=== PATIENT | male | born 2000 | race Caucasian/White ===

== ENCOUNTER 2019-03-08 17:44 | Inpatient (IN) ==
[2019-03-08] MEDS ORDERED: SODIUM CHLORIDE 0.9% 1000ML 1,000 ML IV SCH (18:15)
[2019-03-08 18:31] LABS: Basophils # (auto) 0.01 K/uL (0-0.2); Basophils % (auto) 0.1 %; Eosinophils # (auto) 0.01 K/uL (0-0.5); Eosinophils % (auto) 0.1 %; Hematocrit (blood only) 43.8 % (42-52); Immature Granulocytes # (auto) 0.01 K/uL (0.00-0.02); Immature Granulocytes % (auto) 0.1 %; Lymphocytes # (auto) 2.36 K/uL (1.2-3.4); Lymphocytes % (auto) 31.2 %; Mean Corpuscular Hemoglobin 30.9 pg (25-34); Mean Corpuscular Hgb Conc 34.2 g/dL (32-36); Mean Corpuscular Volume 90.1 fL (80-100); Mean Platelet Volume 11.1 fL (7.4-10.4); Monocytes # (auto) 0.68 K/uL (0.11-0.59); Neutrophils # (auto) 4.49 K/uL (1.4-6.5); Neutrophils % (auto) 59.5 %; Platelet Count 173 K/uL (130-400); RDW Coefficient of Variation 13.6 % (11.5-14.5); RDW Standard Deviation 45.1 fL (36.4-46.3); Red Blood Count 4.86 M/uL (4.7-6.1); White Blood Count 7.56 K/uL (4.8-10.8)
[2019-03-08] MEDS ORDERED: TPA for Stroke IV STA (18:32)
--- NOTE | 2019-03-08 18:35 | CT Scan Report ---
CT head/brain wo con CLINICAL HISTORY: 18 years-old Male presenting with Stroke evaluation . TECHNIQUE: Multidetector CT imaging of the head was performed without the use of intravenous contrast . IV contrast: None. One or more dose lowering techniques were used consistent with the principles of ALARA (as low as reasonably achievable), including automatic exposure control, mA or kV adjustment t o individual patient size, and/or use of iterative reconstruction. COMPARISON: None. CT DOSE (mGy.cm): The estimated cumulative dose is 1089.12. FINDINGS: Replenishment Buyer topogram: Unremarkable. Ventricles and sulci normal in size. No hemorrhage. Brain parenchyma normal in appearance with preser leana sprague-white differentiation. No acute territorial infarct. No mass effect or midline shift. No ext ra-axial fluid collection. Paranasal sinuses and mastoid air cells clear. Calvarium intact. IMPRESSION: 1. No acute intracranial abnormality. These findings were discussed with charge nurse by Dr. Hopson on 03/08/2019 6:32 PM. Electronically signed by: Dayo Hopson M.D. 03/08/2019 6:33 PM
[2019-03-08] MEDS ORDERED: OPTIRAY 320 125ml IV PRN (18:37)
--- NOTE | 2019-03-08 18:40 | CT Scan Report ---
CT angio head w con CLINICAL HISTORY: 18 years-old Male presenting with right sided weakness, concern for stroke. TECHNIQUE: Multidetector CT angiography of the head was performed after the administration of intrave nous contrast. 3-D volumetric and/or maximum intensity projection (MIP) images were subsequently wolfgang nstructed for review. IV contrast: Optiray 320. One or more dose lowering techniques were used consis tent with the principles of ALARA (as low as reasonably achievable), including automatic exposure con trol, mA or kV adjustment to individual patient size, and/or use of iterative reconstruction. COMPARISON: None. CT DOSE (mGy.cm): The estimated cumulative dose is 1089.12 mGy.cm. FINDINGS: Selector Packer topogram: Unremarkable. Anterior circulation: Intracranial portions of the internal carotid arteries patent to the level of t he termini. Anterior cerebral arteries patent. Middle cerebral arteries patent. Anterior communicatin g artery patent. Posterior circulation: Codominant vertebral arteries. Intradural portions of the vertebral arteries p atent. Posterior inferior cerebellar arteries patent. Basilar artery patent. Anterior inferior cerebe llar arteries poorly visualized. Superior cerebellar arteries patent. Posterior cerebral arteries pat ent. Posterior communicating arteries patent. Dural venous sinuses: Patent. Other: Allowing for the phase of contrast, brain parenchyma within normal limits. Calvarium intact. IMPRESSION: 1. No evidence of aneurysm, focal vessel occlusion, or significant stenosis of the intracranial yessy joana. Electronically signed by: Dayo Hopson M.D. 03/08/2019 6:39 PM
[2019-03-08] MEDS ORDERED: ALTEPLASE BOLUS IV ONE (18:42)
[2019-03-08 18:43] LABS: INR 1.1 (0.9-1.1); Partial Thromboplastin Time 26.3 Seconds (21.0-31.0)
[2019-03-08] MEDS ORDERED: PRIMARY PLUMSET, PE LINED TUBING, 113 IN, NON-DEHP (2260-0500) IV ONE (18:43)
[2019-03-08] MEDS ORDERED: ALTEPLASE IV ONE (18:43)
[2019-03-08] MEDS ORDERED: RECOMBINANT IV ONE (18:43)
--- NOTE | 2019-03-08 18:43 | CT Scan Report ---
CT angio neck with con CLINICAL HISTORY: 18 years-old Male presenting with right-sided weakness, concern for stroke. TECHNIQUE: Multidetector CT angiography of the neck was performed after the administration of intrave nous contrast. 3-D volumetric and/or maximum intensity projection (MIP) images were subsequently wolfgang nstructed for review. IV contrast: 120 mL of Optiray 320. One or more dose lowering techniques were u sed consistent with the principles of ALARA (as low as reasonably achievable), including automatic ex posure control, mA or kV adjustment to individual patient size, and/or use of iterative reconstructio n. Stenosis measurements were based on NASCET-like criteria (distal lumen diameter as the denominator for stenosis measurement). COMPARISON: None. CT DOSE (mGy.cm): The estimated cumulative dose is 1089.12. FINDINGS: Commercial Insulator topogram: Unremarkable. Aortic arch: Normal three-vessel aortic arch with patent origins of the branch vessels. Innominate artery: Patent. Right subclavian artery: Patent. Right common carotid artery: Patent. Right internal and external carotid arteries: Right carotid bifurcation patent. Right internal and ex ternal carotid arteries widely patent. Left common carotid artery: Patent. Left internal and external carotid arteries: Left carotid bifurcation patent. Left internal and exter nal carotid arteries widely patent. Left subclavian artery: Patent. Vertebral arteries: Codominant vertebral arteries. Origins and courses of the bilateral vertebral art eries patent. Other: Limited intracranial evaluation within normal limits. Soft tissues of the neck normal allowing for the phase of contrast. Normal cervical spine. Lung apices clear. IMPRESSION: 1. No evidence of dissection, focal vessel occlusion, or significant stenosis of the cervical arteri es. Electronically signed by: Dayo Hopson M.D. 03/08/2019 6:41 PM
[2019-03-08 18:49] LABS: Alanine Aminotransferase 23 U/L (12-78); Albumin Level 4.5 gm/dl (3.4-5.0); Aspartate Aminotransferase 13 U/L (15-37); BUN Creatinine Ratio 10.9 (10-20); Blood Urea Nitrogen 12 mg/dl (7-18); Calcium 9.2 mg/dl (8.5-10.1); Carbon Dioxide 30 mmol/L (21-32); Chloride 104 mmol/L (98-107); Creatinine Clr Calc Pharmacy 114.7 ml/min; Est GFR (Non-African American) 100.1; Glucose 82 mg/dl (70-99); Magnesium 1.9 mg/dl (1.8-2.4); Potassium 3.8 mmol/L (3.5-5.1); Sodium 141 mmol/L (136-145)
[2019-03-08 18:53] LABS: Albumin Globulin Ratio 1.5 (0.9-2); Alkaline Phosphatase 76 U/L (45-117); Bilirubin,Total 0.8 mg/dl (0.2-1); Globulin 3.1 gm/dl (2.5-4.0); Total Protein 7.6 gm/dl (6.4-8.2); Troponin I < 0.015 ng/ml (0-0.045)
--- NOTE | 2019-03-08 19:07 | XRay Report ---
XR chest 1V portable CLINICAL HISTORY: 18 years-old Male presenting with weakness. TECHNIQUE: Portable upright AP view of the chest was obtained. COMPARISON: 04/01/2018. FINDINGS: Cardiomediastinal silhouette normal. No focal opacity. No large effusion or pneumothorax. Osseous str uctures normal. Upper abdomen normal. IMPRESSION: 1. No acute cardiopulmonary disease. Electronically signed by: Dayo Hopson M.D. 03/08/2019 7:06 PM
[2019-03-08] MEDS ORDERED: MAGNESIUM SULFATE 1GM / D5W BAG IV ONE (19:41)
[2019-03-08] MEDS: MAGNESIUM SULFATE / D5W 1 GM/100 ML BAG IV SCH ×2 (20:24→21:24)
--- NOTE | 2019-03-08 20:43 | CT Scan Report ---
CT head/brain wo con CLINICAL HISTORY: 18 years-old Male presenting with GRACIA after TPA. TECHNIQUE: Multidetector CT imaging of the head was performed without the use of intravenous contrast . IV contrast: None. One or more dose lowering techniques were used consistent with the principles of ALARA (as low as reasonably achievable), including automatic exposure control, mA or kV adjustment t o individual patient size, and/or use of iterative reconstruction. COMPARISON: 03/08/2019. CT DOSE (mGy.cm): The estimated cumulative dose is 537.48 mGy.cm. FINDINGS: Developer Automatic topogram: Unremarkable. Ventricles and sulci normal in size. No hemorrhage. Brain parenchyma normal in appearance with preser leana sprague-white differentiation. No acute territorial infarct. No mass effect or midline shift. No ext ra-axial fluid collection. Paranasal sinuses and mastoid air cells clear. Calvarium intact. IMPRESSION: 1. No acute intracranial abnormality. Electronically signed by: Dayo Hopson M.D. 03/08/2019 8:42 PM
--- NOTE | 2019-03-08 22:32 | History & Physical Report ---
Date of Service March 08, 2019 Assessment & Plan (1) Right sided weakness: Cuco is a 18-year-old male with no significant past medical history who presented to [facility] due to right-sided weakness, confusion, expressive and receptive aphasia. ED course: 1 L normal saline bolus. 2 g IV magnesium, t-PA administration. Right-sided weakness/receptive and expressive aphasia/confusion -Stroke alert was called in the ER, the patient was evaluated by Dr. Em Gatzke neurologist, who recommended the administration of t-PA -t-PA initiated at 7:05 PM, monitor for signs and symptoms of bleeding -CT head negative, CTA head and neck negative -Laboratory work, including CBC, coagulation profile, CMP, troponin all unremarkable -Unsure of the cause of patient's symptoms at this time. Interestingly enough, he did improve after t-PA administration. He did have waxing and waning symptoms prior to the administration of t-PA, therefore unsure whether it was the t-PA that resulted in improvement of his symptoms -MRI brain ordered to further evaluate -Will continue stroke work-up, with ECHO with bubble study, hemoglobin A1c, fasting lipid panel, and continued monitoring on telemetry -EKG unremarkable, with normal sinus rhythm, no arrhythmias or evidence of ischemia -Neurology consulted, appreciate assistance with this case -We will also order urine drug studies, TSH and Lyme titers as these are other differentials CODE STATUS: Full DVT prophylaxis: Contraindicated in the setting of recent t-PA Disposition: Admit to ICU for monitoring post TPA administration (2) Received intravenous tissue plasminogen activator (tPA) within last 24 hours: (3) Expressive aphasia: (4) Receptive aphasia: (5) Confusion: History of Present Illness Chief Complaint: Right sided weakness, aphasia Primary Care Provider: NO PCP Cuco is a 18-year-old male with no significant past medical history who presented to [facility] due to right-sided weakness, confusion, expressive and receptive aphasia. He was last well at 4:50 p.m. He states that he was at school, playing an instrument, when he felt the urge to use the restroom. He went and had a bowel movement, and upon standing up from the toilet, stated that he was unable to feel his right leg. He reports that his leg felt numb, and that he could not move it. He states he had to limp out of the restroom. He then reports ascending numbness and weakness from his leg up to his abdomen, chest, arm, and then face. He states that when the numbness and weakness ascended, the prior body part would return to normal. He also reported mild blurry vision during this time. Upon arrival to the hospital, he noted that he had trouble with slurred speech, and confusion, and had difficulty understanding what people were saying to him. He also reports that he had difficulty communicating. He remembers the entire event. He states that his symptoms are 95% better than when he came in. He reports that nothing like this has happened to him before. He denies any prior illnesses, recent fever, chills, or tick bites. He states that he had a headache yesterday, which he attributed to dehydration, but no headaches prior to the onset of his symptoms today. He does report a mild headache now, after having his IV placed, and being administered TPA. He otherwise has no acute complaints at the current moment. Past medical history: Nil of note Past surgical history: None Medications: None Allergies: Penicillin Family history: Maternal grandmother with a history of stroke in her 60s. No history of clotting disorders in the family. Social history: Attends [employer]. Non-smoker, does not use alcohol or recreational drugs. Allergies Allergy/AdvReac Type Severity Reaction Status Date / Time Penicillins Allergy Unknown Verified 03/08/19 20:18 Home Medications Home Medications Medication Instructions Recorded Confirmed Type No Known Home Medications 03/08/19 03/08/19 History Past Med/Surg History Medical History No acute medical problems Surgical History No pertinent past surgical history Family History Grandfather Diabetes Social History Preferred Language: Mauritian Communication Ability: Effective Returned Goods Repairer Required: No Beliefs That Will Affect Care: None Current Living Situation: Parent and Family Other Information That Helps Us Care for You: No Feels Safe at Home: Yes Safety Concerns: Feels Safe At This Time Smoking Status: Never smoker Hx Alcohol Use: No Hx Substance Use: No Review of Systems Constitutional: no fever, no chills, no fatigue and no anorexia Eyes: no diplopia, not seeing flashes and no worsening vision Respiratory: no cough, no dyspnea and no wheezing Cardiovascular: no chest pain, no palpitations, no lightheadedness, no syncope, no edema and no calf pain Gastrointestinal: no abdominal pain, no nausea, no vomiting and no change in bowel habits Genitourinary: no dysuria, no difficulty urinating and no urinary frequency Musculoskeletal: no back pain and no joint pain Integumentary: no rash Neurologic: + headache(s); no gait abnormality, no falls, no seizure-like activity and no syncope Physical Exam Constitutional: WD/WN, vitals as above cooperative and comfortable Eyes: PERRL, conjunctivae normal, anicteric sclerae ENMT: external ear and nose normal, oropharynx normal Respiratory: normal respiratory effort, lungs clear to auscultation Cardiovascular: RRR, no murmur, no edema Gastrointestinal (Abdomen): normal bowel sounds, soft, nontender, no hepatosplenomegaly Musculoskeletal: no cyanosis or clubbing, extremities motor strength 5/5 Skin: no rashes, warm and dry Neurologic: patellar DTR's 2+ bilat, sensation intact and PERRL, EOMI, accommodation nl, no face palsy, no dysarthria Motor/Sensory: no tremor and no pronator drift Cranial nerves 2-12 grossly intact. Coordination intact. Gait normal, including walking heel to toe and on tiptoes. Romberg negative. Psychiatric: A+Ox3, euthymic affect Results & Data Vital Signs (Past 12 Hours) Vital Signs Temp Pulse Resp BP BP Pulse Ox 03/08/19 22:00 101 H 17 145/93 H 97 03/08/19 21:32 89 14 98 03/08/19 21:31 100 H 18 144/91 H 99 03/08/19 21:30 89 18 98 03/08/19 21:06 81 14 137/71 98 03/08/19 21:00 102 H 19 129/79 98 03/08/19 20:46 93 H 16 114/85 98 03/08/19 20:33 140/81 03/08/19 20:30 101 H 16 03/08/19 20:20 99 H 18 98 03/08/19 20:15 101 H 16 138/85 98 03/08/19 20:10 102 H 15 99 03/08/19 20:06 107 H 18 98 03/08/19 20:04 102 H 17 140/86 99 03/08/19 20:00 105 H 12 136/84 98 03/08/19 19:55 101 H 23 99 03/08/19 19:50 119 H 18 98 03/08/19 19:45 100 H 17 131/82 98 03/08/19 19:40 99 H 21 98 03/08/19 19:35 98 H 15 99 03/08/19 19:30 96 H 17 134/85 98 03/08/19 19:25 102 H 13 97 03/08/19 19:20 107 H 13 99 03/08/19 19:17 91 H 23 141/85 H 03/08/19 19:15 102 H 13 03/08/19 19:10 97 H 19 03/08/19 19:05 108 H 12 03/08/19 19:00 98 H 17 03/08/19 18:55 95 H 16 03/08/19 18:50 92 H 16 99 03/08/19 18:45 88 14 96 03/08/19 18:40 83 10 L 99 03/08/19 18:35 94 H 12 122/85 99 03/08/19 18:33 17 99 03/08/19 18:20 94/35 L 03/08/19 18:18 84/59 L 03/08/19 18:15 15 122/85 98 03/08/19 18:04 36.6 C 70 16 109/71 97 Code Status & VTE Plan VTE Prophylaxis Plan VTE Prophylaxis will be ordered: No Supervising Physician Co-Signing Physician Notes Patient was seen and examined by me personally. I reviewed the chart, the orders and discussed the case in detail with Dr. Heidy Izaguirre MD. I read this H&P and agree with its contents to entirety. PG Care Time/CCT Total # of Minutes Spent Total Time Spent with Patient: Total time spent is greater than 50% in coordination of care (as documented) at patient's floor/unit and/or counseling patient: Resident Activity Tracking Resident Involvement: Resident Care Provided Care Provided: Adult Hospital Medicine
[2019-03-08] MEDS ORDERED: ICU PROTOCOL FOR HYPERGLYCEMIA PRN (23:08)
--- NOTE | 2019-03-09 00:16 | Emergency Department Note ---
Entered by Ghulam Mosqueda acting as a scribe for History of Present Illness General Chief complaint: Neuro Symptoms/Deficit Stated complaint: NUMBNESS ON RIGHT SIDE OF BODY, SPEECH Time Seen by Provider: 03/08/19 18:08 Source: patient Limitations: no limitations History of Present Illness Onset (ago): hour(s) (hour and half ago) Location: right (side) Pain Consistency: + constant Quality: + other (tingling) Associated symptoms: + denies other symptoms (neck pain); no headaches, no nausea/vomiting and no shortness of breath The patient is a 18 year old male who presents to the Emergency Room with complaints of constant right-sided weakness starting at 1650. The patient states he was at school playing an instrument when he had to go to the bathroom. He states he went to the bathroom to produce a bowel movement. He notes he was bent over and was on his phone. He states when he got up from the toilet he had numbness and tingling on his right side. The patient states he is currently having trouble describing what happened. He denies chest pain, trouble breathing, nausea, vomiting, neck pain, history of medical problems, recent travel, headaches, drinking alcohol, and smoking tobacco. Home Medications Home Medications Medication Instructions Recorded Confirmed Type No Known Home Medications 03/08/19 03/08/19 History Allergies Allergy/AdvReac Type Severity Reaction Status Date / Time Penicillins Allergy Unknown Verified 03/08/19 20:18 Past Med/Surg History Medical History No acute medical problems Surgical History No pertinent past surgical history Family History Grandfather Diabetes Social History Preferred Language: Burkinan Communication Ability: Effective [employer] Manager Required: No Beliefs That Will Affect Care: None Current Living Situation: Parent and Family Other Information That Helps Us Care for You: No Feels Safe at Home: Yes Safety Concerns: Feels Safe At This Time Smoking Status: Never smoker Hx Alcohol Use: No Hx Substance Use: No Review of Systems See HPI for pertinent positives & negatives. and A total of 10 systems reviewed and were otherwise negative Physical Exam Vital Signs Vital Signs - 24 hr 03/08/19 18:04 03/08/19 18:15 03/08/19 18:18 Temperature 36.6 C Temperature Source Oral Sepsis Recent Fever Within 48 Hours No Sepsis New/Unexplained Change in Mental Status No Sepsis Action Taken by Nursing No Action Required Pulse Rate 70 Pulse Rate from SpO2 Sensor Pulse Rhythm Regular Pulse Strength Normal Respiratory Rate 16 15 Respiratory Effort / Characteristics Non-Labored Spontaneous Non-Labored Respiratory Depth Normal Normal Respiratory Pattern Regular Regular Blood Pressure 109/71 84/59 L Blood Pressure [Right Arm] 122/85 Blood Pressure Mean 83 67 Blood Pressure Mean [Right Arm] 97 Blood Pressure Position Sitting Blood Pressure Position [Right Arm] Lying Pulse Oximetry 97 98 Oxygen Delivery Method Room Air Room Air 03/08/19 18:20 03/08/19 18:33 03/08/19 18:35 Temperature Temperature Source Sepsis Recent Fever Within 48 Hours Sepsis New/Unexplained Change in Mental Status Sepsis Action Taken by Nursing Pulse Rate 94 H Pulse Rate from SpO2 Sensor 102 H 97 H Pulse Rhythm Pulse Strength Respiratory Rate 17 12 Respiratory Effort / Characteristics Respiratory Depth Respiratory Pattern Blood Pressure 94/35 L 122/85 Blood Pressure [Right Arm] Blood Pressure Mean 54 97 Blood Pressure Mean [Right Arm] Blood Pressure Position Blood Pressure Position [Right Arm] Pulse Oximetry 99 99 Oxygen Delivery Method 03/08/19 18:40 03/08/19 18:45 03/08/19 18:50 Temperature Temperature Source Sepsis Recent Fever Within 48 Hours Sepsis New/Unexplained Change in Mental Status Sepsis Action Taken by Nursing Pulse Rate 83 88 92 H Pulse Rate from SpO2 Sensor 84 85 93 H Pulse Rhythm Pulse Strength Respiratory Rate 10 L 14 16 Respiratory Effort / Characteristics Respiratory Depth Respiratory Pattern Blood Pressure Blood Pressure [Right Arm] Blood Pressure Mean Blood Pressure Mean [Right Arm] Blood Pressure Position Blood Pressure Position [Right Arm] Pulse Oximetry 99 96 99 Oxygen Delivery Method 03/08/19 18:55 03/08/19 19:00 03/08/19 19:05 Temperature Temperature Source Sepsis Recent Fever Within 48 Hours Sepsis New/Unexplained Change in Mental Status Sepsis Action Taken by Nursing Pulse Rate 95 H 98 H 108 H Pulse Rate from SpO2 Sensor Pulse Rhythm Pulse Strength Respiratory Rate 16 17 12 Respiratory Effort / Characteristics Respiratory Depth Respiratory Pattern Blood Pressure Blood Pressure [Right Arm] Blood Pressure Mean Blood Pressure Mean [Right Arm] Blood Pressure Position Blood Pressure Position [Right Arm] Pulse Oximetry Oxygen Delivery Method 03/08/19 19:10 03/08/19 19:15 03/08/19 19:17 Temperature Temperature Source Sepsis Recent Fever Within 48 Hours Sepsis New/Unexplained Change in Mental Status Sepsis Action Taken by Nursing Pulse Rate 97 H 102 H 91 H Pulse Rate from SpO2 Sensor Pulse Rhythm Pulse Strength Respiratory Rate 19 13 23 Respiratory Effort / Characteristics Respiratory Depth Respiratory Pattern Blood Pressure 141/85 H Blood Pressure [Right Arm] Blood Pressure Mean 103 Blood Pressure Mean [Right Arm] Blood Pressure Position Blood Pressure Position [Right Arm] Pulse Oximetry Oxygen Delivery Method 03/08/19 19:20 03/08/19 19:25 03/08/19 19:30 Temperature Temperature Source Sepsis Recent Fever Within 48 Hours Sepsis New/Unexplained Change in Mental Status Sepsis Action Taken by Nursing Pulse Rate 107 H 102 H 96 H Pulse Rate from SpO2 Sensor 105 H 103 H 95 H Pulse Rhythm Pulse Strength Respiratory Rate 13 13 17 Respiratory Effort / Characteristics Respiratory Depth Respiratory Pattern Blood Pressure 134/85 Blood Pressure [Right Arm] Blood Pressure Mean 101 Blood Pressure Mean [Right Arm] Blood Pressure Position Blood Pressure Position [Right Arm] Pulse Oximetry 99 97 98 Oxygen Delivery Method 03/08/19 19:35 03/08/19 19:40 03/08/19 19:45 Temperature Temperature Source Sepsis Recent Fever Within 48 Hours Sepsis New/Unexplained Change in Mental Status Sepsis Action Taken by Nursing Pulse Rate 98 H 99 H 100 H Pulse Rate from SpO2 Sensor 96 H 99 H 100 H Pulse Rhythm Pulse Strength Respiratory Rate 15 21 17 Respiratory Effort / Characteristics Respiratory Depth Respiratory Pattern Blood Pressure 131/82 Blood Pressure [Right Arm] Blood Pressure Mean 98 Blood Pressure Mean [Right Arm] Blood Pressure Position Blood Pressure Position [Right Arm] Pulse Oximetry 99 98 98 Oxygen Delivery Method 03/08/19 19:50 03/08/19 19:55 03/08/19 20:00 Temperature Temperature Source Sepsis Recent Fever Within 48 Hours Sepsis New/Unexplained Change in Mental Status Sepsis Action Taken by Nursing Pulse Rate 119 H 101 H 105 H Pulse Rate from SpO2 Sensor 113 H 101 H 110 H Pulse Rhythm Pulse Strength Respiratory Rate 18 23 12 Respiratory Effort / Characteristics Respiratory Depth Respiratory Pattern Blood Pressure 136/84 Blood Pressure [Right Arm] Blood Pressure Mean 101 Blood Pressure Mean [Right Arm] Blood Pressure Position Blood Pressure Position [Right Arm] Pulse Oximetry 98 99 98 Oxygen Delivery Method 03/08/19 20:04 03/08/19 20:06 03/08/19 20:10 Temperature Temperature Source Sepsis Recent Fever Within 48 Hours Sepsis New/Unexplained Change in Mental Status Sepsis Action Taken by Nursing Pulse Rate 102 H 107 H 102 H Pulse Rate from SpO2 Sensor 102 H 108 H 101 H Pulse Rhythm Pulse Strength Respiratory Rate 17 18 15 Respiratory Effort / Characteristics Respiratory Depth Respiratory Pattern Blood Pressure 140/86 Blood Pressure [Right Arm] Blood Pressure Mean 104 Blood Pressure Mean [Right Arm] Blood Pressure Position Blood Pressure Position [Right Arm] Pulse Oximetry 99 98 99 Oxygen Delivery Method 03/08/19 20:15 03/08/19 20:20 03/08/19 20:30 Temperature Temperature Source Sepsis Recent Fever Within 48 Hours Sepsis New/Unexplained Change in Mental Status Sepsis Action Taken by Nursing Pulse Rate 101 H 99 H 101 H Pulse Rate from SpO2 Sensor 103 H 101 H Pulse Rhythm Pulse Strength Respiratory Rate 16 18 16 Respiratory Effort / Characteristics Respiratory Depth Respiratory Pattern Blood Pressure 138/85 Blood Pressure [Right Arm] Blood Pressure Mean 102 Blood Pressure Mean [Right Arm] Blood Pressure Position Blood Pressure Position [Right Arm] Pulse Oximetry 98 98 Oxygen Delivery Method 03/08/19 20:33 03/08/19 20:46 03/08/19 21:00 Temperature Temperature Source Sepsis Recent Fever Within 48 Hours Sepsis New/Unexplained Change in Mental Status Sepsis Action Taken by Nursing Pulse Rate 93 H 102 H Pulse Rate from SpO2 Sensor 96 H 101 H Pulse Rhythm Pulse Strength Respiratory Rate 16 19 Respiratory Effort / Characteristics Respiratory Depth Respiratory Pattern Blood Pressure 140/81 114/85 129/79 Blood Pressure [Right Arm] Blood Pressure Mean 100 94 95 Blood Pressure Mean [Right Arm] Blood Pressure Position Blood Pressure Position [Right Arm] Pulse Oximetry 98 98 Oxygen Delivery Method 03/08/19 21:06 03/08/19 21:30 03/08/19 21:31 Temperature Temperature Source Sepsis Recent Fever Within 48 Hours Sepsis New/Unexplained Change in Mental Status Sepsis Action Taken by Nursing Pulse Rate 81 89 100 H Pulse Rate from SpO2 Sensor 86 92 H 98 H Pulse Rhythm Pulse Strength Respiratory Rate 14 18 18 Respiratory Effort / Characteristics Respiratory Depth Respiratory Pattern Blood Pressure 137/71 144/91 H Blood Pressure [Right Arm] Blood Pressure Mean 93 108 Blood Pressure Mean [Right Arm] Blood Pressure Position Blood Pressure Position [Right Arm] Pulse Oximetry 98 98 99 Oxygen Delivery Method 03/08/19 21:32 03/08/19 22:00 Temperature Temperature Source Sepsis Recent Fever Within 48 Hours Sepsis New/Unexplained Change in Mental Status Sepsis Action Taken by Nursing Pulse Rate 89 101 H Pulse Rate from SpO2 Sensor 89 97 H Pulse Rhythm Pulse Strength Respiratory Rate 14 17 Respiratory Effort / Characteristics Respiratory Depth Respiratory Pattern Blood Pressure 145/93 H Blood Pressure [Right Arm] Blood Pressure Mean 110 Blood Pressure Mean [Right Arm] Blood Pressure Position Blood Pressure Position [Right Arm] Pulse Oximetry 98 97 Oxygen Delivery Method GENERAL: Patient is awake, alert, and in no acute distress.Patient is resting comfortably and showing no signs of anxiety EYES: The conjunctivae are clear. The pupils are round and reactive. EARS, NOSE, MOUTH AND THROAT: The nose is without any evidence of any deformity. Mucous membranes are moist.Tongue is midline NECK: The neck is nontender and supple. RESPIRATORY: Normal respiratory effort is noted. There is no evidence of wheezing rhonchi or rales to auscultation. CARDIOVASCULAR: Regular rate and rhythm noted. There no murmurs rubs or gallops normal S1 normal S2 GASTROINTESTINAL: The abdomen is soft. Bowel sounds are present in all quad rants. Abdomen is nontender. MUSCULOSKELETAL/EXTREMITIES: There is no evidence of gross deformity. Full range of motion is noted in the hips and shoulders. SKIN: There is no obvious evidence of any rash. There are no petechiae, pallor or cyanosis noted. NEUROLOGIC: Patient is awake alert and oriented x3. Strength is symmetric. Patellar reflexes are 2+ bilaterally. Speech is clear but asks some repetitive questions. No facial droop. Strength is symmetric in both upper and lower extremities. Diminished sensation of right arm over left with light touch. Course 180: The nurse was concerned about the patient having a stroke because his NIH stroke scale score was 1. She called me at that time. 1810: The patient was evaluated in room C10, and a complete history and physical examination were performed. Stroke alert was called. 1824: I discussed the patient's case with Dr. Manav Oconnor Neurology. 183: The patient states his right arm is intermittently numb. He states his left side of his body is fine. He denies any headaches in the past 24 hours. He now states there may be family history of heart attacks. He denies any travel. T he patient states he is no longer nauseous. He notes he was nauseous when the IV was getting put in. 1854: I spoke with Dr. Em. He is calling the patient's mother about TPA. 1904: TPA bolus started. Mother at bedside. 1944: The patient's mother is waiting for the dad because they might want to transfer to another hospital. Dr. Stovall. 2025: I reevaluated the patient. He has a headache. He will get another CT scan. 2115: I discussed the patient's case with Dr. Garcia - [facility] Hospitalist. He will evaluate the patient for further management Administered Medications Sodium Chloride (Nss 1000ml) 1,000 mls @ 50 mls/hr IV .Q20H SADAF Stop: 04/07/19 18:14 Last Admin: 03/08/19 22:16 Dose: 50 mls/hr Documented by: [id number] Ioversol (Optiray 320 125ml) 120 ml IV ONCE PRN PRN Reason: Interaction Checking Stop: 03/12/19 18:36 Last Admin: 03/08/19 18:38 Dose: 120 ml Documented by: [id number] Discontinued Medications Alteplase, Recombinant (Activase For Stroke) 1 ea IV NOW STA; Protocol Stop: 03/08/19 18:33 Last Admin: 03/08/19 20:44 Dose: Not Given Documented by: [id number] Alteplase, Recombinant 7.8 mg/ (Syringe) 7.8 mls @ 7.8 mls/min IV ONCE ONE Stop: 03/08/19 18:43 Last Admin: 03/08/19 19:03 Dose: 7.8 mls/min Documented by: [id number] Cosigned by: [id number] Alteplase, Recombinant 70 mg/ (EMPTY BAG) 70 mls @ 70 mls/hr IV ONCE ONE Stop: 03/08/19 18:44 Last Infusion: 03/08/19 20:05 Dose: 0 mls/hr Documented by: [id number] Cosigned by: [id number] Admin: 03/08/19 19:05 Dose: 70 mls/hr Documented by: [id number] Cosigned by: [id number] Magnesium Sulfate/Dextrose (Magnesium Sulfate / D5w) 1 gm in 100 mls @ 100 mls/hr IV Q1H SADAF Stop: 03/08/19 21:44 Last Infusion: 03/08/19 22:16 Dose: 0 mls/hr Documented by: [id number] Admin: 03/08/19 21:24 Dose: 100 mls/hr Documented by: [id number] Infusion: 03/08/19 21:24 Dose: 0 mls/hr Documented by: [id number] Admin: 03/08/19 20:24 Dose: 100 mls/hr Documented by: [id number] Magnesium Sulfate/Dextrose (Magnesium Sulfate / D5w) Confirm Administered Dose 1 gm IV .K-MED ONE Stop: 03/08/19 19:42 Last Admin: 03/08/19 20:44 Dose: Not Given Documented by: [id number] Medical Decision Making Differential Diagnosis Differential Diagnosis includes but is not limited to dehydration, stroke, anemia, hypoglycemia, hyponatremia, hypernatremia, urinary tract infection, pneumonia, bronchitis, sepsis, gastroenteritis, additional abdominal pathology, metabolic abnormalities and infections. Medical Records Attestation: I reviewed the patient's medical records. Home Medications Current Medication List: was personally reviewed by me Laboratory Data Attestation: I reviewed the patient's lab results. Result diagrams: 03/08/19 18:20 03/08/19 18:20 Lab Results 03/08/19 03/08/19 03/08/19 Range/Units 18:18 18:20 18:20 WBC 7.56 (4.8-10.8) K/uL RBC 4.86 (4.7-6.1) M/uL Hgb 15.0 (14.0-18.0) g/dL Hct 43.8 (42-52) % MCV 90.1 (80-100) fL MCH 30.9 (25-34) pg MCHC 34.2 (32-36) g/dL RDW Std Deviation 45.1 (36.4-46.3) fL RDW Coeff of [place] 13.6 (11.5-14.5) % Plt Count 173 (130-400) K/uL MPV 11.1 H (7.4-10.4) fL Immature Gran % (Auto) 0.1 % Neut % (Auto) 59.5 % Lymph % (Auto) 31.2 % [place] % (Auto) 9.0 % Eos % (Auto) 0.1 % Baso % (Auto) 0.1 % Immature Gran # (Auto) 0.01 (0.00-0.02) K/uL Neut # (Auto) 4.49 (1.4-6.5) K/uL Lymph # (Auto) 2.36 (1.2-3.4) K/uL [place] # (Auto) 0.68 H (0.11-0.59) K/uL Eos # (Auto) 0.01 (0-0.5) K/uL Baso # (Auto) 0.01 (0-0.2) K/uL PT 11.0 (9.0-12.0) Seconds INR 1.1 (0.9-1.1) APTT 26.3 (21.0-31.0) Seconds PTT Ratio 1.0 Sodium (136-145) mmol/L Potassium (3.5-5.1) mmol/L Chloride (98-107) mmol/L Carbon Dioxide (21-32) mmol/L Anion Gap (3-11) BUN (7-18) mg/dl Creatinine (0.6-1.4) mg/dl Est Cr Clr Drug Dosing ml/min Est GFR ( Amer) Est GFR (Non-Af Amer) BUN/Creatinine Ratio (10-20) Glucose (70-99) mg/dl POC Glucose 83 (70-99) Calcium (8.5-10.1) mg/dl Magnesium (1.8-2.4) mg/dl Total Bilirubin (0.2-1) mg/dl AST (15-37) U/L ALT (12-78) U/L Alkaline Phosphatase (45-117) U/L Troponin I (0-0.045) ng/ml Total Protein (6.4-8.2) gm/dl Albumin (3.4-5.0) gm/dl Globulin (2.5-4.0) gm/dl Albumin/Globulin Ratio (0.9-2) 03/08/19 Range/Units 18:20 WBC (4.8-10.8) K/uL RBC (4.7-6.1) M/uL Hgb (14.0-18.0) g/dL Hct (42-52) % MCV (80-100) fL MCH (25-34) pg MCHC (32-36) g/dL RDW Std Deviation (36.4-46.3) fL RDW Coeff of [place] (11.5-14.5) % Plt Count (130-400) K/uL MPV (7.4-10.4) fL Immature Gran % (Auto) % Neut % (Auto) % Lymph % (Auto) % [place] % (Auto) % Eos % (Auto) % Baso % (Auto) % Immature Gran # (Auto) (0.00-0.02) K/uL Neut # (Auto) (1.4-6.5) K/uL Lymph # (Auto) (1.2-3.4) K/uL [place] # (Auto) (0.11-0.59) K/uL Eos # (Auto) (0-0.5) K/uL Baso # (Auto) (0-0.2) K/uL PT (9.0-12.0) Seconds INR (0.9-1.1) APTT (21.0-31.0) Seconds PTT Ratio Sodium 141 (136-145) mmol/L Potassium 3.8 (3.5-5.1) mmol/L Chloride 104 (98-107) mmol/L Carbon Dioxide 30 (21-32) mmol/L Anion Gap 7.0 (3-11) BUN 12 (7-18) mg/dl Creatinine 1.07 (0.6-1.4) mg/dl Est Cr Clr Drug Dosing 114.7 ml/min Est GFR ( Amer) 116.0 Est GFR (Non-Af Amer) 100.1 BUN/Creatinine Ratio 10.9 (10-20) Glucose 82 (70-99) mg/dl POC Glucose (70-99) Calcium 9.2 (8.5-10.1) mg/dl Magnesium 1.9 (1.8-2.4) mg/dl Total Bilirubin 0.8 (0.2-1) mg/dl AST 13 L (15-37) U/L ALT 23 (12-78) U/L Alkaline Phosphatase 76 (45-117) U/L Troponin I < 0.015 (0-0.045) ng/ml Total Protein 7.6 (6.4-8.2) gm/dl Albumin 4.5 (3.4-5.0) gm/dl Globulin 3.1 (2.5-4.0) gm/dl Albumin/Globulin Ratio 1.5 (0.9-2) Imaging Data Radiologist's Impression: Radiology results as stated below per my review and the radiologist's interpretation: CT angio head w con CLINICAL HISTORY: 18 years-old Male presenting with right sided weakness, concern for stroke. TECHNIQUE: Multidetector CT angiography of the head was performed after the administration of intravenous contrast. 3-D volumetric and/or maximum intensity projection (MIP) images were subsequently reconstructed for review. IV contrast: Optiray 320. One or more dose lowering techniques were used consistent with the principles of ALARA (as low as reasonably achievable), including automatic exposure control, mA or kV adjustment to individual patient size, and/or use of iterative reconstruction. COMPARISON: None. CT DOSE (mGy.cm): The estimated cumulative dose is 1089.12 mGy.cm. FINDINGS: Rubber Roller Grinder topogram: Unremarkable. Anterior circulation: Intracranial portions of the internal carotid arteries patent to the level of the termini. Anterior cerebral arteries patent. Middle cerebral arteries patent. Anterior communicating artery patent. Posterior circulation: Codominant vertebral arteries. Intradural portions of the vertebral arteries patent. Posterior inferior cerebellar arteries patent. Basilar artery patent. Anterior inferior cerebellar arteries poorly visualized. Superior cerebellar arteries patent. Posterior cerebral arteries patent. Poste rior communicating arteries patent. Dural venous sinuses: Patent. Other: Allowing for the phase of contrast, brain parenchyma within normal limits. Calvarium intact. IMPRESSION: 1. No evidence of aneurysm, focal vessel occlusion, or significant stenosis of the intracranial arteries. Electronically signed by: Dayo Hopson M.D. 03/08/2019 6:[address] angio neck with con CLINICAL HISTORY: 18 years-old Male presenting with right-sided weakness, concern for stroke. TECHNIQUE: Multidetector CT angiography of the neck was performed after the a dministration of intravenous contrast. 3-D volumetric and/or maximum intensity projection (MIP) images were subsequently reconstructed for review. IV contrast: 120 mL of Optiray 320. One or more dose lowering techniques were used consistent with the principles of ALARA (as low as reasonably achievable), including automatic exposure control, mA or kV adjustment to individual patient size, and/or use of iterative reconstruction. Stenosis measurements were based on NASCET-like criteria (distal lumen diameter as the denominator for stenosis measurement). COMPARISON: None. CT DOSE (mGy.cm): The estimated cumulative dose is 1089.12. FINDINGS: Rubber Roller Grinder topogram: Unremarkable. Aortic arch: Normal three-vessel aortic arch with patent origins of the branch vessels. Innominate artery: Patent. Right subclavian artery: Patent. Right common carotid artery: Patent. Right internal and external carotid arteries: Right carotid bifurcation patent. Right internal and external carotid arteries widely patent. Left common carotid artery: Patent. Left internal and external carotid arteries: Left carotid bifurcation patent. Left internal and external carotid arteries widely patent. Left subclavian artery: Patent. Vertebral arteries: Codominant vertebral arteries. Origins and courses of the bilateral vertebral arteries patent. Other: Limited intracranial evaluation within normal limits. Soft tissues of the neck normal allowing for the phase of contrast. Normal cervical spine. Lung apices clear. IMPRESSION: 1. No evidence of dissection, focal vessel occlusion, or significant stenosis of the cervical arteries. Electronically signed by: Dayo Hopson M.D. 03/08/2019 6:41 PM XR chest 1V portable CLINICAL HISTORY: 18 years-old Male presenting with weakness. TECHNIQUE: Portable upright AP view of the chest was obtained. COMPARISON: 04/01/2018. FINDINGS: Cardiomediastinal silhouette normal. No focal opacity. No large effusion or pneumothorax. Osseous structures normal. Upper abdomen normal. IMPRESSION: 1. No acute cardiopulmonary disease. Electronically signed by: Dayo Hopson M.D. 03/08/2019 7:[address] head/brain wo con CLINICAL HISTORY: 18 years-old Male presenting with Stroke evaluation . TECHNIQUE: Multidetector CT imaging of the head was performed without the use of intravenous contrast. IV contrast: None. One or more dose lowering techniques were used consistent with the principles of ALARA (as low as reasonably achievable), including automatic exposure control, mA or kV adjustment to individual patient size, and/or use of iterative reconstruction. COMPARISON: None. CT DOSE (mGy.cm): The estimated cumulative dose is 1089.12. FINDINGS: Rubber Roller Grinder topogram: Unremarkable. Ventricles and sulci normal in size. No hemorrhage. Brain parenchyma normal in appearance with preserved sprague-white differentiation. No acute territorial infarct. No mass effect or midline shift. No extra-axial fluid collection. Paranasal sinuses and mastoid air cells clear. Calvarium intact. IMPRESSION: 1. No acute intracranial abnormality. These findings were discussed with charge nurse by Dr. Hopson on 03/08/2019 6:32 PM. Electronically signed by: Dayo Hopson M.D. 03/08/2019 6:[address] head/brain wo con CLINICAL HISTORY: 18 years-old Male presenting with GRACIA after TPA. TECHNIQUE: Multidetector CT imaging of the head was performed without the use of intravenous contrast. IV contrast: None. One or more dose lowering techniques were used consistent with the principles of ALARA (as low as reasonably achievable), including automatic exposure control, mA or kV adjustment to individual patient size, and/or use of iterative reconstruction. COMPARISON: 03/08/2019. CT DOSE (mGy.cm): The estimated cumulative dose is 537.48 mGy.cm. FINDINGS: Rubber Roller Grinder topogram: Unremarkable. Ventricles and sulci normal in size. No hemorrhage. Brain parenchyma normal in appearance with preserved sprague-white differentiation. No acute territorial infarct. No mass effect or midline shift. No extra-axial fluid collection. Paranasal sinuses and mastoid air cells clear. Calvarium intact. IMPRESSION: 1. No acute intracranial abnormality. Electronically signed by: Dayo Hopson M.D. 03/08/2019 8:42 PM ECG Data Attestation: I personally reviewed and interpreted this ECG as follows: Indication: weakness Rate (beats per minute): 91 Rhythm: normal sinus Findings: no ST depression, no ST elevation and no ectopy Comparison ECG Date: no prior available Blood Pressure Blood Pressure Findings: Elevated blood pressure Blood Pressure Disposition: further management by hospitalist [facility] Narrative The patient is a 18-year-old male who presented to the emergency department for a neurologic event. 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 He had have a bowel movement. While he was having a bowel movement he started having an acute onset of a neurologic event which he describes as right-sided numbness. The patient also had some degree of an expressive aphasia. He had some neglect of his right upper extremity less so his right lower extremity. The patient was made a stroke alert after he was placed in room C10. Orders were placed by myself and then the patient was taken directly to CT. His initial CT did not show any acute disease or acute bleeding so TPA was mixed although given his age I was very concerned that this could be a stroke mimic so I discussed the case with the [facility] stroke neurologist. Ultimately the patient was felt to be a good candidate for TPA. The patient was given TPA after we discussed the risks and benefits with the patient but he asked that we wait for his mother to arrive to be at the emergency department with him. The tele-stroke neurologist called the patient's mother while she was on route and the TPA bolus was agreed upon by the patient the mother myself as well as the tele-stroke neurologist. The patient was reevaluated multiple times. The patient's condition waxed and waned to some degree but he still had significant neurologic deficit when he was being evaluat ed by the tele-stroke neurologist. The patient's CTA did not show any occlusion. I discussed the patient's condition with the guyline operator. Color Mixer did have the opportunity to evaluate the patient in the emergency department. There is some discussion by myself and the patient's mother if they wanted him to stay here versus be transferred to a comprehensive stroke center. For this reason the patient was observed for a longer period of time in the emergency department but ultimately they did wish that the patient stay here for further inpatient work-up. I discussed his case with the on-call [facility] hospitalist. They have agreed to evaluate the patient in the emergency department for further management disposition. Impression & Plan Stroke Critical Care Time Critical Care Time: Yes Total Critical Care Time: 60 I have personally spent 60 minutes of critical care time in the direct management of this patient. This includes bedside care, interpretation of diagnostic studies, and testing, discussion with consultants, patient, and family members, and other required patient management activities. This 60 minutes is in excess of all separately billable procedures. Discharge Plan Visit Data *Final* Discharge Date/Time: 03/08/19 23:05 Chief Complaint: Neuro Symptoms/Deficit Stated Complaint: NUMBNESS ON RIGHT SIDE OF BODY, SPEECH ED Provider: Edward Caputo Discharge Problem: Stroke Patient Disposition: Admitted As Inpatient Discharge Instructions Interventions: ED Discharge Assessment Last Done: 03/08/19 23:05 Discharge Problem: Stroke Qualifiers: CVA mechanism: unspecified Qualified Code(s): I63.9 - Cerebral infarction, unspecified The scribe's documentation has been prepared under my direction and personally reviewed by me in its entirety. I confirm that the note above accurately reflects all work, treatment, procedures, and medical decision making performed by me.
[2019-03-09 04:23] LABS: Basophils # (auto) 0.01 K/uL (0-0.2); Basophils % (auto) 0.1 %; Eosinophils # (auto) 0.01 K/uL (0-0.5); Eosinophils % (auto) 0.1 %; Hematocrit (blood only) 40.4 % (42-52); Hemoglobin 13.7 g/dL (14.0-18.0); Immature Granulocytes # (auto) 0.02 K/uL (0.00-0.02); Immature Granulocytes % (auto) 0.2 %; Lymphocytes # (auto) 2.54 K/uL (1.2-3.4); Lymphocytes % (auto) 28.7 %; Mean Corpuscular Hemoglobin 30.5 pg (25-34); Mean Corpuscular Hgb Conc 33.9 g/dL (32-36); Mean Platelet Volume 11.7 fL (7.4-10.4); Monocytes # (auto) 0.82 K/uL (0.11-0.59); Monocytes % (auto) 9.3 %; Neutrophils # (auto) 5.45 K/uL (1.4-6.5); Neutrophils % (auto) 61.6 %; Platelet Count 174 K/uL (130-400); RDW Coefficient of Variation 13.8 % (11.5-14.5); RDW Standard Deviation 45.5 fL (36.4-46.3); Red Blood Count 4.49 M/uL (4.7-6.1); White Blood Count 8.85 K/uL (4.8-10.8)
[2019-03-09 04:40] LABS: Calcium 8.5 mg/dl (8.5-10.1); Creatinine Clr Calc Pharmacy 137.8 ml/min; Est GFR (African American) 143.7; Potassium 3.7 mmol/L (3.5-5.1)
[2019-03-09 04:51] LABS: Thyroid Stimulating Hormone 1.48 uIu/ml (0.300-4.500)
[2019-03-09 05:12] LABS: Lyme Ab IgG w/WB Rflx Negative (Negative); Lyme Ab IgM w/WB Rflx Negative (Negative)
[2019-03-09 06:17] LABS: Estimated Average Glucose 108 mg/dl; Hemoglobin A1C 5.4 % (4.5-5.6)
--- NOTE | 2019-03-09 08:05 | Critical Care Consultation ---
Date of Consultation This note is reflective of date of service of March 08, 2019, this is delayed chart entry reason for delay was secondary to family decision of whether to admit at [facility] or transfer to a comprehensive stroke center. Time of service is reflective of 1914 until 1999March 09, 2019 Assessment & Plan (1) Right sided weakness: Reason Critically Ill: 18-year-old male with strokelike symptoms received TPA in the emergency department PLAN: Neuro: MRI pending EEG in morning CV: Echocardiogram with bubble study ID: Monitor fever curve GI/Nutrition: N.p.o. until bedside swallow eval Heme: TPA administered 1899 DVT prophylaxis: Contraindicated for 24 hours Endocrine: ICU hyperglycemia protocol Vascular access: Peripheral IVs Code Status: Full code I have personally spent 35 minutes of critical care time in the direct management of this patient. This is a life/limb threatening event. This includes time spent evaluating patient, direct bedside care, chart review, placing orders, interpretation of diagnostic studies, discussion with consultants, patient, and/or family members regarding treatment decisions, as well as other required patient management activities. This time is exclusive of all separately billable procedures, and teaching time and separate from and in addition to any other critical care service time. 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 He was brought to [facility] emergency department for concern of stroke. He was seen by the tele-stroke service of [place] and the decision was made to administer TPA. After the TPA administration the patient's symptomatology was improving. There was significant family discussion with regards to whether to admit the patient locally or transfer to a comprehensive stroke center. Ultimately the patient and family decided to stay for further evaluation and treatment here at [facility]. Allergies Allergy/AdvReac Type Severity Reaction Status Date / Time Penicillins Allergy Unknown Verified 03/08/19 20:18 Home Medications Home Medications Medication Instructions Recorded Confirmed Type No Known Home Medications 03/08/19 03/08/19 History Patient History Medical History No acute medical problems Surgical History No pertinent past surgical history Family History Grandfather Diabetes Social History Preferred Language: Azeri Communication Ability: Effective Home Day Care Provider Required: No Beliefs That Will Affect Care: None Current Living Situation: Parent and Family Other Information That Helps Us Care for You: No Feels Safe at Home: Yes Safety Concerns: Feels Safe At This Time Smoking Status: Never smoker Hx Alcohol Use: No Hx Substance Use: No Review of Systems Review of Systems: All systems reviewed & are unremarkable except as noted in HPI & below Denies headache, dizziness, mild persistent paresthesias of the right upper extremity difficulty with some comprehension Physical Exam Physical Exam: General: Well-nourished male who appears stated age I have reviewed the recorded vital signs Neurological: RASS score: 0, Moves all 4 extremities, cranial nerves II through XII are grossly intact visual burris are normal tested to confrontation. 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 Symmetrical lids. Visual burris normal to confrontation HENT: Oropharynx Clear, moist Mucous Membranes. Neck: Supple. Symmetric. trachea midline. No thyromegaly. Cardiovascular: Normal peripheral perfusion. Distal pulses and capillary refill intact. No JVD. Respiratory: Respirations are non-labored, no accessory muscle use. Breath sounds are equal. Gastrointestinal: Soft. Non-distended. Lymphatic: No cervical lymphadenopathy. Musculoskeletal: No deformity. No clubbing nor cyanosis. 5 out of 5 strength in all bilateral upper and lower extremities Results & Data Vital Signs (Past 12 Hours) Vital Signs Temp Pulse Pulse Resp BP BP Pulse Ox 03/09/19 07:00 36.7 C 93 H 19 117/60 95 03/09/19 06:00 64 16 107/42 L 95 03/09/19 05:00 82 16 113/52 L 95 03/09/19 04:30 71 16 105/52 L 94 03/09/19 04:03 104 H 13 109/46 L 97 03/09/19 04:00 36.6 C 91 H 79 22 109/46 L 94 03/09/19 03:30 68 16 93 03/09/19 03:01 62 74 17 152/43 H 152/43 H 94 03/09/19 03:00 75 19 93 03/09/19 02:31 80 16 140/61 93 03/09/19 02:30 73 17 93 03/09/19 02:00 97 H 68 18 149/65 H 140/61 96 03/09/19 01:30 83 79 17 125/70 125/70 94 03/09/19 01:20 137 H 17 03/09/19 00:30 36.6 C 84 20 117/59 L 97 03/09/19 00:23 84 17 117/59 L 97 03/09/19 00:00 85 79 10 L 130/61 130/61 100 03/08/19 23:30 83 92 H 11 L 128/62 128/62 97 03/08/19 23:18 89 17 122/54 L 99 03/08/19 23:08 76 17 03/08/19 23:00 37.1 C 88 81 13 122/54 L 98 03/08/19 22:30 88 12 125/71 03/08/19 22:00 101 H 17 145/93 H 97 03/08/19 21:32 89 14 98 03/08/19 21:31 100 H 18 144/91 H 99 03/08/19 21:30 89 18 98 03/08/19 21:06 81 14 137/71 98 03/08/19 21:00 102 H 19 129/79 98 03/08/19 20:46 93 H 16 114/85 98 03/08/19 20:33 140/81 03/08/19 20:30 101 H 16 03/08/19 20:20 99 H 18 98 03/08/19 20:15 101 H 16 138/85 98 03/08/19 20:10 102 H 15 99 03/08/19 20:06 107 H 18 98 03/08/19 20:04 102 H 17 140/86 99 03/08/19 20:00 105 H 12 136/84 98 PG Care Time/CCT Total # of Minutes Spent Total Time Spent: 45 Total Time Spent with Patient: Total time spent is greater than 50% in coordination of care (as documented) at patient's floor/unit and/or counseling patient: Critical Care Time: Yes Total Critical Care Time: 45
[2019-03-09 08:09] LABS: Amphetamines+Metham, Urine Neg (Neg); Barbiturates, Urine Neg (Neg); Benzodiazepine, Urine Neg (Neg); Cocaine, Urine Neg (Neg); MDMA (Ecstacy), Urine Neg (Neg); Methadone, Urine Neg (Neg); Opiate, Urine Neg (Neg); Phencyclidine, Urine Neg (Neg)
--- NOTE | 2019-03-09 09:01 | Magnetic Resonance Report ---
MRI OF THE BRAIN WITHOUT CONTRAST CLINICAL HISTORY: Right-sided weakness. Suspected stroke. COMPARISON STUDY: Head CT dated 03/08/2019 FINDINGS: Sagittal T1, axial diffusion, proton density and T2 weighted axial, coronal FLAIR, and axial T1-weigh amy images were acquired. No intra or extra-axial mass lesions are visualized Axial diffusion-weighted images reveal no evidence of acute or subacute infarction. There is no evidence of ventricular dilatation. Proton density T2-weighted and FLAIR images reveal no significant intraparenchymal signal abnormaliti es. There are no abnormal flow voids. There is a tiny right maxillary sinus retention cyst. SWAN images reveal no evidence of hemorrhage. IMPRESSION: Normal noncontrast MRI of the brain Electronically signed by: Edmar Snider M.D. 03/09/2019 6:29 AM
--- NOTE | 2019-03-09 09:45 | Critical Care Progress Note ---
Date of Service March 09, 2019 Assessment & Plan (1) Admitted to intensive care unit: Reason Critically Ill: 18-year-old male here for S/p TPA admin for suspected stroke. No significant past medical history Neuro: -[facility] ICU: NEGATIVE Status post TPA administration. Patient presented to the emergency department last night with right-sided weakness starting approximately 1650. Patient states that the symptoms started as a "numbness or tingling feeling in his right lower extremity and slowly migrated up body and stayed in his arm for a while". On neuro exam yesterday evening, the patient's cranial nerves were grossly intact, strength was intact, sensation was intact, proprioception was intact. The patient appeared to have trouble with higher-order processes, such as two-step commands, for example when asked to touch the examiner's finger and then the patient's nose the patient exclaimed, "I do not understand what you are asking me to do". Patient also difficulty with math he was unable to add a quarter, nickel, 2 dimes, had difficulty writing, difficulty identifying his fingers. 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 It is a constellation of symptoms that suggest a neurological abnormality near the temporoparietal junction. The differential for this syndrome includes stroke, seizure focus, hypoxic injury, infectious etiology, amongst others. Given his acute presentation of his concerning neurological symptoms, and the morbidity and mortality associated with an untreated stroke. Consent was obtained and the patient was administered TPA. He is currently 24 hours status post TPA. -Following TPA & Stroke protocol -MRI this morning demonstrated normal noncontrast MRI -Status post echo results pending Laboratory values within normal limits -Physical exam findings resolved overnight status post TPA -Likely can be downgraded out of the ICU 24 hours status post TPA administration Gerstmann Syndrome See above. Given the negative findings on the MRI, it is reasonable to conclude that a stroke, infectious focus, or significant cerebrovascular disease was the cause of his presentation. Upon reviewing the history with the patient, he had no exposure to carbon monoxide. It is certainly possible that he experienced a weird vagal episode causing acute hypoxia of the temporoparietal junction given his prolonged standing, stress level, and symptoms developing after using the restroom. 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 Patient symptoms of currently resolved. -Neurology consulted appreciate recommendations -Stroke work-up negative, status post TPA -Follow-up EEG results -Patient received magnesium in the ED yesterday evening Cardiac: While there is no evidence of stroke or cardiovascular compromise on imaging studies it is certainly possible the patient could have had a PFO, and/or myxoma -Follow-up results of echo and manage appropriately Respiratory: No acute concerns at present, patient has been maintaining airway and saturating well on room air. GI: Normal diet RENAL/LYTES: -No significant electrolyte derangement. -Replace lytes as needed. -would consider keeping him slightly hypermagnesemic : - No concerns at this time. ENDO: -No concerns at this time HEME: -Stable H&H. -We will monitor hemoglobin for any signs of anemia status post TPA ID: -No concerns for infection at this point. -Monitor fever curve. INTEGUMENTARY: -No concerns at present LINES/IV ACCESS: -PIVs intact. DVT PROPHYLAXIS: -SCDs and ambulation Dispo: To the general medical floors after 24 hours status post TPA administration Thank you for allowing us to be part of this patient's care. Please refer to Dr. Stovall's documentation for any further recommendations. Supervising Physician Co-Signing Physician Notes .Dr. Smith was resident physician during care of patient. I separately evaluated patient for lane portions of the history and the exam. I was present during the critical portion of medical decision making, and I discussed the case with the resident. I generally agree with the findings and plan. During my evaluation today the patient was asymptomatic and had return to baseline no difficulty with two-step complex commands of the right upper extremity and did not exhibit signs of receptive difficulties. Reviewed echo no intra-atrial shunt, reviewed EEG: Focal slowing in left cerebral hemisphere Reviewed neurology notes. Patient declined hypercoagulable work-up at this time. Will order venous duplex per neurology recommendations. Patient would be stable to proceed to telemetry status status post 24 hours TPA administration. Currently undergoing contrast-enhanced brain MRI. Subjective Patient laying in bed this morning in no acute distress status post neuro check. Patient reported doing well overnight, tolerated TPA well with no acute events. Patient passed dysphagia screen, tolerated his breakfast, slept well, voiding, stooling on his own. Patient his mother had questions about the plan for today, explained to them that we would be proceeding with EEG, and potentially more i maging studies. Patient is already received an MRI and an echo, results pending. We prepared the family for the potential that the patient's exact diagnosis may not be clear at discharge however this does not mean that a diagnosis will not be found. It may take additional outpatient testing to adequately explain his event. 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 Patient specifically denies any incontinence, fever, chills, nausea, vomiting, change in vision, change in hearing, reports feeling like he is back to his normal self. Review of Systems Review of Systems: All systems reviewed & are unremarkable except as noted in HPI & below Physical Exam Constitutional: WD/WN, vitals as above well developed, well nourished and well groomed; no acute distress Eyes: PERRL, conjunctivae normal, anicteric sclerae normal visual burris by confrontation Neck: normal visual inspection and trachea midline Respiratory: normal respiratory effort, lungs clear to auscultation Cardiovascular: RRR, no murmur, no edema Heart Sounds: normal S1 and normal S2; no gallop, no murmur and no cardiac rub Vessels: no JVD Extremities: normal capillary refill; no calf tenderness Gastrointestinal (Abdomen): normal bowel sounds, soft, nontender, no hepatosplenomegaly Musculoskeletal: no cyanosis or clubbing, extremities motor strength 5/5 Skin: no rashes, warm and dry Neurologic: PERRL, EOMI, accommodation nl, no face palsy, no dysarthria normal touch/pain/proprioception, CN's II-XI intact bilaterally and awake Coordination: normal [id number] test, normal [id number]-lb-[id number] test and normal rapid alternating movements Psychiatric: A+Ox3, euthymic affect Apperance: appropriately dressed and appropriately groomed Eye Contact: good eye contact Motor Behavior: no abnormal motor movements Speech: normal rate/rhythm/volume of speech Affect: euthymic affect (arms crossed) Thought Process: clear/coherent thought process Estimated Intelligence: consistent with education level Results & Data Vital Signs (Past 12 Hours) Vital Signs Temp Pulse Pulse Resp BP BP Pulse Ox 03/09/19 07:00 36.7 C 93 H 19 117/60 95 03/09/19 06:00 64 16 107/42 L 95 03/09/19 05:00 82 16 113/52 L 95 03/09/19 04:30 71 16 105/52 L 94 03/09/19 04:03 104 H 13 109/46 L 97 03/09/19 04:00 36.6 C 91 H 79 22 109/46 L 94 03/09/19 03:30 68 16 93 03/09/19 03:01 62 74 17 152/43 H 152/43 H 94 03/09/19 03:00 75 19 93 03/09/19 02:31 80 16 140/61 93 03/09/19 02:30 73 17 93 03/09/19 02:00 97 H 68 18 149/65 H 140/61 96 03/09/19 01:30 83 79 17 125/70 125/70 94 03/09/19 01:20 137 H 17 03/09/19 00:30 36.6 C 84 20 117/59 L 97 03/09/19 00:23 84 17 117/59 L 97 03/09/19 00:00 85 79 10 L 130/61 130/61 100 03/08/19 23:30 83 92 H 11 L 128/62 128/62 97 03/08/19 23:18 89 17 122/54 L 99 03/08/19 23:08 76 17 03/08/19 23:00 37.1 C 88 81 13 122/54 L 98 03/08/19 22:30 88 12 125/71 03/08/19 22:00 101 H 17 145/93 H 97 03/08/19 21:32 89 14 98 03/08/19 21:31 100 H 18 144/91 H 99 03/08/19 21:30 89 18 98 03/08/19 21:06 81 14 137/71 98 03/08/19 21:00 102 H 19 129/79 98 03/08/19 20:46 93 H 16 114/85 98 03/08/19 20:33 140/81 03/08/19 20:30 101 H 16 Laboratory Results 03/09/19 03/09/19 03/09/19 Range/Units 07:15 04:03 03:58 WBC (4.8-10.8) K/uL RBC (4.7-6.1) M/uL Hgb (14.0-18.0) g/dL Hct (42-52) % MCV (80-100) fL MCH (25-34) pg MCHC (32-36) g/dL RDW Std Deviation (36.4-46.3) fL RDW Coeff of [place] (11.5-14.5) % Plt Count (130-400) K/uL MPV (7.4-10.4) fL Immature Gran % (Auto) % Neut % (Auto) % Lymph % (Auto) % Casey % (Auto) % Eos % (Auto) % Baso % (Auto) % Immature Gran # (Auto) (0.00-0.02) K/uL Neut # (Auto) (1.4-6.5) K/uL Lymph # (Auto) (1.2-3.4) K/uL Casey # (Auto) (0.11-0.59) K/uL Eos # (Auto) (0-0.5) K/uL Baso # (Auto) (0-0.2) K/uL PT (9.0-12.0) Seconds INR (0.9-1.1) APTT (21.0-31.0) Seconds PTT Ratio Sodium (136-145) mmol/L Potassium (3.5-5.1) mmol/L Chloride (98-107) mmol/L Carbon Dioxide (21-32) mmol/L Anion Gap (3-11) BUN (7-18) mg/dl Creatinine (0.6-1.4) mg/dl Est Cr Clr Drug Dosing ml/min Est GFR ( Amer) Est GFR (Non-Af Amer) BUN/Creatinine Ratio (10-20) Glucose (70-99) mg/dl POC Glucose 92 (70-99) Estimat Average Glucose mg/dl Hemoglobin A1c (4.5-5.6) % Calcium (8.5-10.1) mg/dl Magnesium (1.8-2.4) mg/dl Total Bilirubin (0.2-1) mg/dl AST (15-37) U/L ALT (12-78) U/L Alkaline Phosphatase (45-117) U/L Troponin I (0-0.045) ng/ml Total Protein (6.4-8.2) gm/dl Albumin (3.4-5.0) gm/dl Globulin (2.5-4.0) gm/dl Albumin/Globulin Ratio (0.9-2) Triglycerides (0-150) mg/dl Cholesterol (0-200) mg/dl LDL Cholesterol, Calc mg/dl VLDL Cholesterol, Calc mg/dl HDL Cholesterol mg/dl Cholesterol/HDL Ratio TSH (0.300-4.500) uIu/ml Nasal Screen MRSA (PCR) (Negative) Urine Opiates Screen Neg (Neg) Ur Methadone, Qual Neg (Neg) Urine Barbiturates Neg (Neg) Ur Phencyclidine (PCP) Neg (Neg) U Amphetamin/Meth Scrn Neg (Neg) MDMA (Ecstasy) Screen Neg (Neg) U Benzodiazepines Scrn Neg (Neg) Ur Cocaine Metabolite Neg (Neg) U Marijuana (THC) Screen Neg (Neg) Lyme Disease IgG Ab Negative (Negative) Lyme Disease IgM Ab Negative (Negative) 03/09/19 03/09/19 03/09/19 Range/Units 03:58 03:58 03:58 WBC 8.85 (4.8-10.8) K/uL RBC 4.49 L (4.7-6.1) M/uL Hgb 13.7 L (14.0-18.0) g/dL Hct 40.4 L (42-52) % MCV 90.0 (80-100) fL MCH 30.5 (25-34) pg MCHC 33.9 (32-36) g/dL RDW Std Deviation 45.5 (36.4-46.3) fL RDW Coeff of [place] 13.8 (11.5-14.5) % Plt Count 174 (130-400) K/uL MPV 11.7 H (7.4-10.4) fL Immature Gran % (Auto) 0.2 % Neut % (Auto) 61.6 % Lymph % (Auto) 28.7 % Casey % (Auto) 9.3 % Eos % (Auto) 0.1 % Baso % (Auto) 0.1 % Immature Gran # (Auto) 0.02 (0.00-0.02) K/uL Neut # (Auto) 5.45 (1.4-6.5) K/uL Lymph # (Auto) 2.54 (1.2-3.4) K/uL Casey # (Auto) 0.82 H (0.11-0.59) K/uL Eos # (Auto) 0.01 (0-0.5) K/uL Baso # (Auto) 0.01 (0-0.2) K/uL PT (9.0-12.0) Seconds INR (0.9-1.1) APTT (21.0-31.0) Seconds PTT Ratio Sodium 142 (136-145) mmol/L Potassium 3.7 (3.5-5.1) mmol/L Chloride 108 H (98-107) mmol/L Carbon Dioxide 29 (21-32) mmol/L Anion Gap 5.0 (3-11) BUN 9 (7-18) mg/dl Creatinine 0.89 (0.6-1.4) mg/dl Est Cr Clr Drug Dosing 137.8 ml/min Est GFR ( Amer) 143.7 Est GFR (Non-Af Amer) 124.0 BUN/Creatinine Ratio 10.0 (10-20) Glucose 93 (70-99) mg/dl POC Glucose (70-99) Estimat Average Glucose 108 mg/dl Hemoglobin A1c 5.4 (4.5-5.6) % Calcium 8.5 (8.5-10.1) mg/dl Magnesium (1.8-2.4) mg/dl Total Bilirubin (0.2-1) mg/dl AST (15-37) U/L ALT (12-78) U/L Alkaline Phosphatase (45-117) U/L Troponin I (0-0.045) ng/ml Total Protein (6.4-8.2) gm/dl Albumin (3.4-5.0) gm/dl Globulin (2.5-4.0) gm/dl Albumin/Globulin Ratio (0.9-2) Triglycerides 113 (0-150) mg/dl Cholesterol 114 (0-200) mg/dl LDL Cholesterol, Calc 49 mg/dl VLDL Cholesterol, Calc 23 mg/dl HDL Cholesterol 42 mg/dl Cholesterol/HDL Ratio 3 TSH 1.480 (0.300-4.500) uIu/ml Nasal Screen MRSA (PCR) (Negative) Urine Opiates Screen (Neg) Ur Methadone, Qual (Neg) Urine Barbiturates (Neg) Ur Phencyclidine (PCP) (Neg) U Amphetamin/Meth Scrn (Neg) MDMA (Ecstasy) Screen (Neg) U Benzodiazepines Scrn (Neg) Ur Cocaine Metabolite (Neg) U Marijuana (THC) Screen (Neg) Lyme Disease IgG Ab (Negative) Lyme Disease IgM Ab (Negative) 03/08/19 03/08/19 03/08/19 Range/Units 23:00 18:20 18:20 WBC (4.8-10.8) K/uL RBC (4.7-6.1) M/uL Hgb (14.0-18.0) g/dL Hct (42-52) % MCV (80-100) fL MCH (25-34) pg MCHC (32-36) g/dL RDW Std Deviation (36.4-46.3) fL RDW Coeff of [place] (11.5-14.5) % Plt Count (130-400) K/uL MPV (7.4-10.4) fL Immature Gran % (Auto) % Neut % (Auto) % Lymph % (Auto) % Casey % (Auto) % Eos % (Auto) % Baso % (Auto) % Immature Gran # (Auto) (0.00-0.02) K/uL Neut # (Auto) (1.4-6.5) K/uL Lymph # (Auto) (1.2-3.4) K/uL Casey # (Auto) (0.11-0.59) K/uL Eos # (Auto) (0-0.5) K/uL Baso # (Auto) (0-0.2) K/uL PT 11.0 (9.0-12.0) Seconds INR 1.1 (0.9-1.1) APTT 26.3 (21.0-31.0) Seconds PTT Ratio 1.0 Sodium 141 (136-145) mmol/L Potassium 3.8 (3.5-5.1) mmol/L Chloride 104 (98-107) mmol/L Carbon Dioxide 30 (21-32) mmol/L Anion Gap 7.0 (3-11) BUN 12 (7-18) mg/dl Creatinine 1.07 (0.6-1.4) mg/dl Est Cr Clr Drug Dosing 114.7 ml/min Est GFR ( Amer) 116.0 Est GFR (Non-Af Amer) 100.1 BUN/Creatinine Ratio 10.9 (10-20) Glucose 82 (70-99) mg/dl POC Glucose (70-99) Estimat Average Glucose mg/dl Hemoglobin A1c (4.5-5.6) % Calcium 9.2 (8.5-10.1) mg/dl Magnesium 1.9 (1.8-2.4) mg/dl Total Bilirubin 0.8 (0.2-1) mg/dl AST 13 L (15-37) U/L ALT 23 (12-78) U/L Alkaline Phosphatase 76 (45-117) U/L Troponin I < 0.015 (0-0.045) ng/ml Total Protein 7.6 (6.4-8.2) gm/dl Albumin 4.5 (3.4-5.0) gm/dl Globulin 3.1 (2.5-4.0) gm/dl Albumin/Globulin Ratio 1.5 (0.9-2) Triglycerides (0-150) mg/dl Cholesterol (0-200) mg/dl LDL Cholesterol, Calc mg/dl VLDL Cholesterol, Calc mg/dl HDL Cholesterol mg/dl Cholesterol/HDL Ratio TSH (0.300-4.500) uIu/ml Nasal Screen MRSA (PCR) Negative (Negative) Urine Opiates Screen (Neg) Ur Methadone, Qual (Neg) Urine Barbiturates (Neg) Ur Phencyclidine (PCP) (Neg) U Amphetamin/Meth Scrn (Neg) MDMA (Ecstasy) Screen (Neg) U Benzodiazepines Scrn (Neg) Ur Cocaine Metabolite (Neg) U Marijuana (THC) Screen (Neg) Lyme Disease IgG Ab (Negative) Lyme Disease IgM Ab (Negative) 03/08/19 03/08/19 Range/Units 18:20 18:18 WBC 7.56 (4.8-10.8) K/uL RBC 4.86 (4.7-6.1) M/uL Hgb 15.0 (14.0-18.0) g/dL Hct 43.8 (42-52) % MCV 90.1 (80-100) fL MCH 30.9 (25-34) pg MCHC 34.2 (32-36) g/dL RDW Std Deviation 45.1 (36.4-46.3) fL RDW Coeff of [place] 13.6 (11.5-14.5) % Plt Count 173 (130-400) K/uL MPV 11.1 H (7.4-10.4) fL Immature Gran % (Auto) 0.1 % Neut % (Auto) 59.5 % Lymph % (Auto) 31.2 % Casey % (Auto) 9.0 % Eos % (Auto) 0.1 % Baso % (Auto) 0.1 % Immature Gran # (Auto) 0.01 (0.00-0.02) K/uL Neut # (Auto) 4.49 (1.4-6.5) K/uL Lymph # (Auto) 2.36 (1.2-3.4) K/uL Casey # (Auto) 0.68 H (0.11-0.59) K/uL Eos # (Auto) 0.01 (0-0.5) K/uL Baso # (Auto) 0.01 (0-0.2) K/uL PT (9.0-12.0) Seconds INR (0.9-1.1) APTT (21.0-31.0) Seconds PTT Ratio Sodium (136-145) mmol/L Potassium (3.5-5.1) mmol/L Chloride (98-107) mmol/L Carbon Dioxide (21-32) mmol/L Anion Gap (3-11) BUN (7-18) mg/dl Creatinine (0.6-1.4) mg/dl Est Cr Clr Drug Dosing ml/min Est GFR ( Amer) Est GFR (Non-Af Amer) BUN/Creatinine Ratio (10-20) Glucose (70-99) mg/dl POC Glucose 83 (70-99) Estimat Average Glucose mg/dl Hemoglobin A1c (4.5-5.6) % Calcium (8.5-10.1) mg/dl Magnesium (1.8-2.4) mg/dl Total Bilirubin (0.2-1) mg/dl AST (15-37) U/L ALT (12-78) U/L Alkaline Phosphatase (45-117) U/L Troponin I (0-0.045) ng/ml Total Protein (6.4-8.2) gm/dl Albumin (3.4-5.0) gm/dl Globulin (2.5-4.0) gm/dl Albumin/Globulin Ratio (0.9-2) Triglycerides (0-150) mg/dl Cholesterol (0-200) mg/dl LDL Cholesterol, Calc mg/dl VLDL Cholesterol, Calc mg/dl HDL Cholesterol mg/dl Cholesterol/HDL Ratio TSH (0.300-4.500) uIu/ml Nasal Screen MRSA (PCR) (Negative) Urine Opiates Screen (Neg) Ur Methadone, Qual (Neg) Urine Barbiturates (Neg) Ur Phencyclidine (PCP) (Neg) U Amphetamin/Meth Scrn (Neg) MDMA (Ecstasy) Screen (Neg) U Benzodiazepines Scrn (Neg) Ur Cocaine Metabolite (Neg) U Marijuana (THC) Screen (Neg) Lyme Disease IgG Ab (Negative) Lyme Disease IgM Ab (Negative) Medications Administered Current Inpatient Medications Ioversol (Optiray 320 125ml) 120 ml IV ONCE PRN PRN Reason: Interaction Checking Stop: 03/12/19 18:36 Last Admin: 03/08/19 18:38 Dose: 120 ml Documented by: Miscellaneous ([facility] Protocol For Hyperglycemia) 1 ea N/A PRN PRN; Protocol PRN Reason: Hyperglycemia Protocol Stop: 03/10/19 23:07 PG Care Time/CCT Total # of Minutes Spent Total Time Spent with Patient: Total time spent is greater than 50% in coordination of care (as documented) at patient's floor/unit and/or counseling patient: Resident Activity Tracking Resident Involvement: Resident Care Provided Care Provided: Adult Hospital Medicine (stroke vs seizure gerstmann syndrome )
--- NOTE | 2019-03-09 10:30 | Neurology Consultation ---
Date of Consultation March 09, 2019 Assessment & Plan (1) Stroke-like episode: Strokelike episode localizing to the left cerebral hemisphere presenting with quickly evolving right sided numbness and paresthesia with associated weakness and confusion, possibly receptive and expressive aphasia. Symptoms resolved after administration of TPA. However, there is no evidence of stroke, thromboembolic, or atherosclerotic disease on patient's extensive imaging. No known stroke risk factors. A stroke mimic is certainly possible. No evidence for hypoglycemia. A partial complex seizure localizing to the left cerebral hemisphere is possible. No known history of seizure disorder or similar symptoms previously, however. His EEG does reveal some mild intermittent focal slowing to the left cerebral hemisphere. This finding implies some potential underlying focal neuronal dysfunction but is not diagnostic of a seizure disorder. Follow-up with results of EEG report. Follow-up with results of transthoracic echocardiogram. Would recommend obtaining a hypercoagulable panel as well. Consider obtaining a lower extremity ultrasound to rule out DVT. I would also like this patient to have a contrast-enhanced MRI with seizure protocol if possible. I would not start an anticonvulsant at this time. We will start a daily low-dose aspirin, 81 mg/day, 24 hours after TPA administration. His lipid panel is normal and I would not start a statin at this time. Case discussed with hospitalist service at bedside. History of Present Illness Reason for Consultation: Possible CVA, patient received TPA Requesting Physician: Heidy Izaguirre MD Attending Physician: Mainor Cagle DO History of Present Illness The patient is a 18-year-old male with a chief complaint of right sided numbness and tingling that began acutely yesterday at around 4:50 PM and was associated with right-sided weakness and confusion. The patient is a member of the [employer] and was practicing [employer] for about 2 hours yesterday afternoon prior to going to the bathroom to have a bowel movement. He was sitting on the commode for about 10 minutes when he began to notice numbness and tingling affecting the right lower extremity, from the knee down to the foot. He walked back to practice and noticed some resolution of the tingling affecting the right lower limb. However, he then became aware of a similar sensory sensation affecting the right side of the abdominal wall and chest which then more rapidly progressed to affect the distal right upper extremity, from the elbow down to the hand as well as the right lower face. He recalls that the right arm and hand felt heavy and weak. He had called his mother on his cell phone and apparently had significant confusion and difficulty with expressive speech. He was evaluated in the emergency department about 80 minutes after symptom onset. He was noted to have some difficulty with speech at that time and a tele-stroke consultation was obtained. He did not have an obvious associated hemiparesis per the emergency department examination. However, given his clinical presentation the stroke specialist felt that he was an appropriate candidate for TPA which was administered. The patient's symptoms have subsequently resolved. He denies experiencing any associated headache of significance. No associated vision disturbance. No known history of migraine or seizure disorder. Prior to yesterday's episode, the patient had been feeling well and denies any recent illnesses. No recent vaccinations. He denies any drug or substance use. Additional details as below. Allergies Allergy/AdvReac Type Severity Reaction Status Date / Time Penicillins Allergy Unknown Verified 03/08/19 20:18 Home Medications Home Medications Medication Instructions Recorded Confirmed Type No Known Home Medications 03/08/19 03/08/19 History Patient History Medical History No acute medical problems Surgical History No pertinent past surgical history Family History Grandfather Diabetes Social History Preferred Language: Brazilian Communication Ability: Effective Pan Pusher Required: No Beliefs That Will Affect Care: None Current Living Situation: Parent and Family Other Information That Helps Us Care for You: No Feels Safe at Home: Yes Safety Concerns: Feels Safe At This Time Smoking Status: Never smoker Hx Alcohol Use: No Hx Substance Use: No Review of Systems Constitutional: no fever, no chills and no fatigue Eyes: no blind spots and no diplopia Ear, Nose, Mouth, Throat: no tinnitus and no hearing loss Respiratory: no cough and no dyspnea Cardiovascular: no chest pain and no palpitations Gastrointestinal: no nausea and no vomiting Genitourinary: no dysuria and no urinary incontinence Musculoskeletal: no neck pain and no myalgia Integumentary: no rash and no lesions Neurologic: as per Subjective / HPI, + abnormal speech and + confusion; no seizure-like activity and no syncope Psychiatric: no depression and no anxiety Hematologic / Lymphatic: no easy bleeding and no easy bruising Physical Exam Physical Exam: The patient is a well-developed, well-nourished adult male. He is alert and fully oriented. Recent and remote memory intact. Attention and concentration normal. Patient exhibits a normal spontaneous speech pattern as well as an age-appropriate fund of knowledge. He is able to name objects and repeat phrases. He is able to read text and write sentences without difficulty. Normal language comprehension. No left right confusion. No acalculia. No finger agnosia. No signs of hemineglect at this time. Visual burris full to confrontation. Visual acuity normal. Pupils equal round reactive to light and accommodation. Eye movements normal. No ptosis or nystagmus. No gaze preference. Facial sensation intact. There is no facial droop or weakness. Hearing intact. Palate elevates to midline. Shoulder shrug intact. Tongue protrudes to midline. Sensation intact to all modalities in all 4 limbs. Deep tendon reflexes intact and symmetrical for the arms and legs. Plantar responses downgoing bilaterally. There is no dysdiadochokinesia or dysmetria [id number] or nqae-[id number] bilaterally. There is no pronator drift. There is normal facility of fine finger movements. There is no fix with arm roll. Ophthalmoscopic examination reveals normal-appearing optic disks and posterior segments. No papilledema or hemorrhages. Carotid pulses normal bilaterally, no bruits to auscultation. Gait and station normal. Patient exhibits normal muscle strength and tone for all 4 limbs. There is no atrophy. No abnormal movements observed. Results & Data Vital Signs (Past 12 Hours) Vital Signs Temp Pulse Pulse Resp BP BP Pulse Ox 03/09/19 08:00 79 14 119/67 97 03/09/19 07:00 36.7 C 93 H 19 117/60 95 03/09/19 06:00 64 16 107/42 L 95 03/09/19 05:00 82 16 113/52 L 95 03/09/19 04:30 71 16 105/52 L 94 03/09/19 04:03 104 H 13 109/46 L 97 03/09/19 04:00 36.6 C 91 H 79 22 109/46 L 94 03/09/19 03:30 68 16 93 03/09/19 03:01 62 74 17 152/43 H 152/43 H 94 03/09/19 03:00 75 19 93 03/09/19 02:31 80 16 140/61 93 03/09/19 02:30 73 17 93 03/09/19 02:00 97 H 68 18 149/65 H 140/61 96 03/09/19 01:30 83 79 17 125/70 125/70 94 03/09/19 01:20 137 H 17 03/09/19 00:30 36.6 C 84 20 117/59 L 97 03/09/19 00:23 84 17 117/59 L 97 03/09/19 00:00 85 79 10 L 130/61 130/61 100 03/08/19 23:30 83 92 H 11 L 128/62 128/62 97 03/08/19 23:18 89 17 122/54 L 99 03/08/19 23:08 76 17 03/08/19 23:00 37.1 C 88 81 13 122/54 L 98 03/08/19 22:30 88 12 125/71 Laboratory Results WBC 8.85, hemoglobin 13.7, hematocrit 40.4, platelet count 174, sodium 142, potassium 3.7, BUN 9, creatinine 0.89, glucose 93, hemoglobin A1c 5.4, calcium 8.5, magnesium 1.9, AST 13, ALT 23, troponin less than 0.015, triglycerides 113, cholesterol 114, LDL 49, VLDL 23, HDL 42, TSH 1.480, Lyme antibody screening negative, urine toxicology screen negative. Diagnostic Findings A CT of the head obtained yesterday was negative for hemorrhage or acute process. I reviewed the images and radiologist interpretation of this test. A CT angiogram of the head and neck completed yesterday was negative for aneurysm, focal vessel occlusion, or significant stenosis of the intracranial or extracranial arteries. I reviewed the images and radiologist interpretation of this test. A noncontrast MRI of the brain obtained overnight was negative for acute or subacute infarct. No parenchymal abnormality. I reviewed the images and radiologist interpretation of this test. An electrocardiogram reveals a normal sinus rhythm, 91 bpm. An EEG completed at bedside this morning reveals a normal 10 Hz background rhythm as well as intermittent 3-1/2 Hz focal slowing to the left posterior parietal and temporal region. No epileptiform abnormalities. I reviewed the tracing at bedside. Official report pending.
--- NOTE | 2019-03-09 11:29 | Electroencephalogram ---
EEG Procedure Note Date of Service March 09, 2019 Start / End Times Start Time: 9:37 AM End Time: 9:56 AM Referring Physician John Stovall DO History Rapidly evolving right sided sensory disturbance with associated weakness and aphasia. Patient admitted with stroke alert, status post TPA. Home Medication List Home Medications Medication Instructions Recorded Confirmed Type No Known Home Medications 03/08/19 03/08/19 History Inpatient Medication List Ioversol (Optiray 320 125ml) 120 ml IV ONCE PRN PRN Reason: Interaction Checking Stop: 03/12/19 18:36 Last Admin: 03/08/19 18:38 Dose: 120 ml Documented by: [id number] Discontinued Medications Alteplase, Recombinant (Activase For Stroke) 1 ea IV NOW STA; Protocol Stop: 03/08/19 18:33 Last Admin: 03/08/19 20:44 Dose: Not Given Documented by: [id number] Sodium Chloride (Nss 1000ml) 1,000 mls @ 125 mls/hr IV .Q8H SADAF Stop: 03/09/19 02:14 Last Infusion: 03/09/19 07:09 Dose: 0 mls/hr Documented by: [id number] Admin: 03/08/19 22:16 Dose: 50 mls/hr Documented by: [id number] Alteplase, Recombinant 7.8 mg/ (Syringe) 7.8 mls @ 7.8 mls/min IV ONCE ONE Stop: 03/08/19 18:43 Last Admin: 03/08/19 19:03 Dose: 7.8 mls/min Documented by: [id number] Cosigned by: [id number] Alteplase, Recombinant 70 mg/ (EMPTY BAG) 70 mls @ 70 mls/hr IV ONCE ONE Stop: 03/08/19 18:44 Last Infusion: 03/08/19 20:05 Dose: 0 mls/hr Documented by: [id number] Cosigned by: [id number] Admin: 03/08/19 19:05 Dose: 70 mls/hr Documented by: [id number] Cosigned by: [id number] Magnesium Sulfate/Dextrose (Magnesium Sulfate / D5w) 1 gm in 100 mls @ 100 mls/hr IV Q1H SADAF Stop: 03/08/19 21:44 Last Infusion: 03/08/19 22:16 Dose: 0 mls/hr Documented by: [id number] Admin: 03/08/19 21:24 Dose: 100 mls/hr Documented by: [id number] Infusion: 03/08/19 21:24 Dose: 0 mls/hr Documented by: [id number] Admin: 03/08/19 20:24 Dose: 100 mls/hr Documented by: [id number] Magnesium Sulfate/Dextrose (Magnesium Sulfate / D5w) Confirm Administered Dose 1 gm IV [email or web address] ONE Stop: 03/08/19 19:42 Last Admin: 03/08/19 20:44 Dose: Not Given Documented by: [id number] Description This is a 21 electrode EEG with a single channel dedicated to limited EKG. The electrodes were placed in accordance with the International 10-20 system. There is a well-developed posterior dominant rhythm of 10 Hz which is symme trically distributed and attenuates with eye opening. There is a normal anterior to posterior organization. Photic stimulation is unremarkable. Hyperventilation is not performed. There is intermittent 3-1/2 Hz slowing localizing to the left temporoparietal region. There are no epileptiform abnormalities. Interpretation This awake/drowsy EEG reveals focal posterior left hemispheric slowing superimposed on a normal background alpha rhythm. The finding suggests underlying focal cerebral/neuronal dysfunction in this region. There are no epileptiform abnormalities, however. Clinical Correlation The observed focal slowing may be consistent with TIA localizing to the left cerebral hemisphere or possibly a tendency for focal seizures originating from this area. The observed findings do not imply specific pathology, however. Please see today's neurology consult for further details. [facility] EEG Procedure Codes Indication for Procedure (1) Stroke-like episode: (2) Seizure-like activity: Neurology Neurology: EEG include record awake & drowsy
--- NOTE | 2019-03-09 13:41 | Family Medicine Progress Note ---
Date of Service March 09, 2019 Assessment & Plan (1) Stroke-like episode: Cuco Padgett is a 18 year old man with no major PMH who is currently in the ICU after presenting for first time occurrence of stroke like symptoms. Stroke Like Episode Patient with expressive and receptive aphasia, right sided weakness and confusion after practice on Administered TPA, currently in ICU Imaging and lab work have all been negative to this point Vitals stable throughout Neurology evaluated considering vaso vagal vs seizure activity EEG showing some slowing over left hemisphere region. Patient has completely returned to his baseline, difficult to say whether it was the TPA or if just timing Echo not showing any Right to left shunt Cannot rule out aortic vegetation though seems very unlikely Will get hypercoagulability labs Starting patient on ASA 81 daily Will step down to med tele after 24 hours Post TPA administration F/E/N: Regular Diet DVT PPx: TPA Dispo: ICU (2) Admitted to intensive care unit: Supervising Physician Co-Signing Physician Notes I saw the patient with the resident physician and confirmed lane portions of the history and physical exam. I also discussed the case with the consulting physicians. I agree with the impression and plan as noted above. Upon my examination, the patient is resting in bed without complaint. All neurological symptoms have resolved. The patient's mother, father, and younger brother are at bedside. Family history is relatively unremarkable except for a paternal history of what sounds to be vasovagal presyncope/syncope. His social history is reviewed and is relatively unremarkable; while he is probably mildly sleep deprived secondary to his classes and extracurricular activities, it does not sound to be disproportionately excessive compared to the average college student. Results of laboratory work and imaging reviewed with patient and family. Reviewed recommendations from neurology consultation. PLAN 1) transthoracic echocardiogram 2) Dopplers lower extremity 3) MRI brain with contrast (seizure protocol) 4) hypercoagulability work-up 5) agree with low-dose aspirin Subjective Sharath is feeling back to his usual state of health currently, he does not endorse any weakness, confusion or other concerning symptoms. He does tell me that he feels tired. He has not had any bloody or darkened stools. He has been having trouble with blood draws, he faints each time his vein is accessed. Review of Systems Review of Systems: All systems reviewed & are unremarkable except as noted in HPI & below Constitutional: + fatigue; no fever, no chills and no sweats Eyes: no problem reported Respiratory: no cough and no dyspnea Cardiovascular: + syncope; no chest pain, no dyspnea and no palpitations Gastrointestinal: no abdominal pain, no nausea and no vomiting Neurologic: no gait abnormality, no unsteadiness, no falls, no localized weakness, no generalized weakness, no numbness, no paresthesia, no tremor(s), no dizziness, no headache(s), no abnormal speech and no confusion Physical Exam Constitutional: well developed and well nourished; no acute distress Eyes: PERRL, conjunctivae normal, anicteric sclerae Respiratory: normal respiratory effort, lungs clear to auscultation Cardiovascular: Rate/Rhythm: regular rate and regular rhythm Heart Sounds: normal S1 and normal S2; no click, no gallop, no murmur and no cardiac rub Extremities: normal capillary refill; no calf tenderness and no edema Gastrointestinal (Abdomen): normal bowel sounds, soft, nontender, no hepatosplenomegaly Skin: no rashes, warm and dry Neurologic: normal touch/pain/proprioception, CN's II-XI intact bilaterally and deep tendon reflexes 2+ bilaterally Results & Data Vital Signs (Past 12 Hours) Vital Signs Temp Pulse Pulse Resp BP BP Pulse Ox 03/09/19 13:00 66 16 121/53 L 95 03/09/19 12:00 36.7 C 106 H 22 141/61 H 95 03/09/19 11:00 79 18 113/63 96 03/09/19 10:00 82 16 125/70 97 03/09/19 09:00 92 H 16 132/79 97 03/09/19 08:00 79 14 119/67 97 03/09/19 07:00 36.7 C 93 H 19 117/60 95 03/09/19 06:00 64 16 107/42 L 95 03/09/19 05:00 82 16 113/52 L 95 03/09/19 04:30 71 16 105/52 L 94 03/09/19 04:03 104 H 13 109/46 L 97 03/09/19 04:00 36.6 C 91 H 79 22 109/46 L 94 03/09/19 03:30 68 16 93 03/09/19 03:01 62 74 17 152/43 H 152/43 H 94 03/09/19 03:00 75 19 93 03/09/19 02:31 80 16 140/61 93 03/09/19 02:30 73 17 93 03/09/19 02:00 97 H 68 18 149/65 H 140/61 96 PG Care Time/CCT Total # of Minutes Spent Total Time Spent with Patient: Total time spent is greater than 50% in coordination of care (as documented) at patient's floor/unit and/or counseling patient: Resident Activity Tracking Resident Involvement: Resident Care Provided Care Provided: Adult Hospital Medicine
[2019-03-09] MEDS ORDERED: GADOBUTROL 65ML VIAL IV PRN (18:00)
--- NOTE | 2019-03-09 18:13 | Magnetic Resonance Report ---
MR brain seizure wo/w con CLINICAL HISTORY: 18 years-old Male presenting with Episode of right-sided weakness and aphasia, left hemispheric slowing on EEG, recent TPA. TECHNIQUE: Multisequence, multiplanar MR imaging of the brain was performed before and after the admi nistration of intravenous contrast. Dedicated seizure protocol was used. IV contrast: 8.5 mL of Gadav ist. COMPARISON: 03/09/2019 noncontrast Brain MRI with a nondedicated protocol (not tailored for seizure ev aluation). FINDINGS: Localizer images: Unremarkable. Bone marrow signal intensity within the calvarium within normal limits. Normal midline sagittal structures. Ventricles and sulci normal in size. No mass effect or midline sh ift. No hemorrhage. Brain parenchyma normal in appearance with preserved sprague-white differentiation. No abnormal parenchymal enhancement. No extra-axial fluid collection. T2 skull base flow voids preserved. IMPRESSION: 1. No acute intracranial pathology. No abnormal enhancement. Electronically signed by: Dayo Hopson M.D. 03/09/2019 6:11 PM
--- NOTE | 2019-03-09 18:35 | Ultrasound Report ---
US venous doppler LE CLINICAL HISTORY: 18 years-old Male presenting with leg pain and numbness, recently treated with TPA for suspected stroke. TECHNIQUE: Real-time grayscale and color and spectral Doppler ultrasound imaging of the veins of the bilateral lower extremities was performed. Compression and augmentation were also utilized. COMPARISON: None. FINDINGS: RIGHT: Common femoral vein: Patent. Greater saphenous vein (superficial): Patent. Deep femoral vein: Patent. Femoral vein: Patent. Popliteal vein: Patent. Calf veins: Patent. LEFT: Common femoral vein: Patent. Greater saphenous vein (superficial): Patent. Deep femoral vein: Patent. Femoral vein: Patent. Popliteal vein: Patent. Calf veins: Patent. Other: None. IMPRESSION: No evidence of deep venous thrombosis. Electronically signed by: Dayo Hopson M.D. 03/09/2019 6:34 PM
[2019-03-10 05:48] LABS: Chol HDL Ratio 3; Cholesterol 131 mg/dl (0-200); HDL Cholesterol 45 mg/dl; LDL Cholesterol Calculated 69 mg/dl; Triglycerides 84 mg/dl (0-150); VLDL Cholesterol 17 mg/dl
[2019-03-10] MEDS ORDERED: ASPIRIN 81 MG ECTAB PO SCH (09:00)
--- NOTE | 2019-03-10 14:21 | Discharge Summary ---
Date of Service March 10, 2019 Admission HPI Per Admitting Provider Cuco is a 18-year-old male with no significant past medical history who presented to [facility] due to right-sided weakness, confusion, expressive and receptive aphasia. He was last well at 4:50 p.m. He states that he was at school, playing an instrument, when he felt the urge to use the restroom. He went and had a bowel movement, and upon standing up from the toilet, stated that he was unable to feel his right leg. He reports that his leg felt numb, and that he could not move it. He states he had to limp out of the restroom. He then reports ascending numbness and weakness from his leg up to his abdomen, chest, arm, and then face. He states that when the numbness and weakness ascended, the prior body part would return to normal. He also reported mild blurry vision during this time. Upon arrival to the hospital, he noted that he had trouble with slurred speech, and confusion, and had difficulty understanding what people were saying to him. He also reports that he had diffi culty communicating. He remembers the entire event. He states that his symptoms are 95% better than when he came in. He reports that nothing like this has happened to him before. He denies any prior illnesses, recent fever, chills, or tick bites. He states that he had a headache yesterday, which he attributed to dehydration, but no headaches prior to the onset of his symptoms today. He does report a mild headache now, after having his IV placed, and being administered TPA. He otherwise has no acute complaints at the current moment. Past medical history: Nil of note Past surgical history: None Medications: None Allergies: Penicillin Family history: Maternal grandmother with a history of stroke in her 60s. No history of clotting disorders in the family. Social history: Attends [employer]. Non-smoker, does not use alcohol or recreational drugs. Admission Exam Per Admitting Provider Physical Exam Constitutional: WD/WN, vitals as above cooperative and comfortable Eyes: PERRL, conjunctivae normal, anicteric sclerae ENMT: external ear and nose normal, oropharynx normal Respiratory: normal respiratory effort, lungs clear to auscultation Cardiovascular: RRR, no murmur, no edema Gastrointestinal (Abdomen): normal bowel sounds, soft, nontender, no hepatosplenomegaly Musculoskeletal: no cyanosis or clubbing, extremities motor strength 5/5 Skin: no rashes, warm and dry Neurologic: patellar DTR's 2+ bilat, sensation intact and PERRL, EOMI, accommodation nl, no face palsy, no dysarthria Motor/Sensory: no tremor and no pronator drift Cranial nerves 2-12 grossly intact. Coordination intact. Gait normal, including walking heel to toe and on tiptoes. Romberg negative. Psychiatric: A+Ox3, euthymic affect Principal Diagnosis Stroke-like symptoms Discharge Exam Constitutional WD/WN, vitals as above Eyes PERRL, conjunctivae normal, anicteric sclerae ENMT external ear and nose normal, oropharynx normal Neck trachea midline, no thyromegaly Respiratory normal respiratory effort, lungs clear to auscultation Cardiovascular RRR, no murmur, no edema Gastrointestinal (Abdomen) normal bowel sounds, soft, nontender, no hepatosplenomegaly Musculoskeletal no cyanosis or clubbing, extremities motor strength 5/5 Skin no rashes, warm and dry Neurologic PERRL, EOMI, accommodation nl, no face palsy, no dysarthria Psychiatric A+Ox3, euthymic affect Lymphatic no cervical or axillary lymphadenopathy Discharge Data Allergies Allergy/AdvReac Type Severity Reaction Status Date / Time Penicillins Allergy Unknown Verified 03/08/19 20:18 Consultations 03/08/19 21:18 ED Decision to Admit Stat 03/08/19 21:25 Consult Wincher Stat 03/08/19 23:08 Consult Neurology Routine 03/10/19 00:14 Consult MNPG auger press operator Routine 03/10/19 10:08 Consult MNPG auger press operator Routine Ordered Studies [place], [place] [phone] CT Scan Report Patient: Sherry RICHARDS Date: 03/08/19 MR#: [id number]: [address] [place] [address] Acct ID:[id number]: Date: 2000[facility] Zip: [place] [id number] Age: 18Location: ED Sex: M Room/Bed: Att Phy:Diagnosis: NUMBNESS ON RIGHT SIDE OF BODY, SPEECH Keila Phy: PCP,NOService Date: 03/08/19 Fam Phy:Interpreting Phy: Dayo Hopson MD Admit Phy: Ordering Phy: Edward Caputo DO cc: ~ CT head/brain wo con CLINICAL HISTORY: 18 years-old Male presenting with GRACIA after TPA. TECHNIQUE: Multidetector CT imaging of the head was performed without the use of intravenous contrast. IV contrast: None. One or more dose lowering techniques were used consistent with the principles of ALARA (as low as reasonably achievable), including automatic exposure control, mA or kV adjustment to individual patient size, and/or use of iterative reconstruction. COMPARISON: 03/08/2019. CT DOSE (mGy.cm): The estimated cumulative dose is 537.48 mGy.cm. FINDINGS: Caddy Packer topogram: Unremarkable. Ventricles and sulci normal in size. No hemorrhage. Brain parenchyma normal in appearance with preserved sprague-white differentiation. No acute territorial infarct. No mass effect or midline shift. No extra-axial fluid collection. Paranasal sinuses and mastoid air cells clear. Calvarium intact. IMPRESSION: 1. No acute intracranial abnormality. Electronically signed by: Dayo Hopson M.D. 03/08/2019 8:42 PM Dictated: 03/08/192039 Transcribed: 03/08/192039 [place], [place] [phone] Magnetic Resonance Report Patient: Sherry RICHARDS Date: 03/08/19 MR#: [id number]: [address] [place] [address] Acct ID:[id number]: Date: 2000[facility] Zip: [place] [address] Age: 18Location: 1E Sex: M Room/Bed: [facility] Att Phy: Fazal Gacria, DODiagnosis: RIGHT SIDED WEAKNESS,APHASIA,S/P TPA Keila Phy: PCP,NOService Date: 03/09/19 [facility] Phy:Interpreting Phy: Edmar Snider MD Admit Phy: Heidy Izaguirre MD Ordering Phy: Heidy Izaguirre MD cc: ~ MRI OF THE BRAIN WITHOUT CONTRAST CLINICAL HISTORY: Right-sided weakness. Suspected stroke. COMPARISON STUDY: Head CT dated 03/08/2019 FINDINGS: Sagittal T1, axial diffusion, proton density and T2 weighted axial, coronal FLAIR, and axial T1-weighted images were acquired. No intra or extra-axial mass lesions are visualized Axial diffusion-weighted images reveal no evidence of acute or subacute infarction. There is no evidence of ventricular dilatation. Proton density T2-weighted and FLAIR images reveal no significant intraparenchymal signal abnormalities. There are no abnormal flow voids. There is a tiny right maxillary sinus retention cyst. SWAN images reveal no evidence of hemorrhage. IMPRESSION: Normal noncontrast MRI of the brain Electronically signed by: Edmar Snider M.D. 03/09/2019 6:29 AM Dictated: 03/09/19626 Transcribed: 03/09/19626 [place], [place] [phone] Magnetic Resonance Report Patient: Sherry RICHARDS Date: 03/08/19 MR#: [id number]: [address] [facility] Acct ID:[id number]: Date: 2000[facility] Zip: [place] [address] Age: 18Location: 1E Sex: M Room/Bed: [facility] Att Phy: Mainor Cagle D.O.Diagnosis: RIGHT SIDED WEAKNESS,APHASIA,S/P TPA Keila Phy: PCP,NOService Date: 03/09/19 Fam Phy:Interpreting Phy: Dayo Hopson MD Admit Phy: Heidy Izaguirre MD Ordering Phy: John Holcomb MD cc: ~ MR brain seizure wo/w con CLINICAL HISTORY: 18 years-old Male presenting with Episode of right-sided weakness and aphasia, left hemispheric slowing on EEG, recent TPA. TECHNIQUE: Multisequence, multiplanar MR imaging of the brain was performed before and after the administration of intravenous contrast. Dedicated seizure protocol was used. IV contrast: 8.5 mL of Gadavist. COMPARISON: 03/09/2019 noncontrast Brain MRI with a nondedicated protocol (not tailored for seizure evaluation). FINDINGS: Localizer images: Unremarkable. Bone marrow signal intensity within the calvarium within normal limits. Normal midline sagittal structures. Ventricles and sulci normal in size. No mass effect or midline shift. No hemorrhage. Brain parenchyma normal in appearance with preserved sprague-white differentiation. No abnormal parenchymal enhancement. No extra-axial fluid collection. T2 skull base flow voids preserved. IMPRESSION: 1. No acute intracranial pathology. No abnormal enhancement. Electronically signed by: Dayo Hopson M.D. 03/09/2019 6:11 PM Dictated: 03/09/191804 Transcribed: 03/09/191804 [facility], [place] [phone] Ultrasound Report Patient: Sherry RICHARDS Date: 03/08/19 MR#: [id number]: [address] Acct ID:[id number]: Date: 2000[facility] Zip: [place] [address] Age: 18Location: 1E Sex: M Room/Bed: [facility] Att Phy: Mainor Cagle D.O.Diagnosis: RIGHT SIDED WEAKNESS,APHASIA,S/P TPA Keila Phy: PCP,NOService Date: 03/09/19 Fam Phy:Interpreting Phy: Dayo Hopson MD Admit Phy: Heidy Izaguirre MD Ordering Phy: John Stovall D.O. cc: ~ US venous doppler LE BI CLINICAL HISTORY: 18 years-old Male presenting with leg pain and numbness, recently treated with TPA for suspected stroke. TECHNIQUE: Real-time grayscale and color and spectral Doppler ultrasound imaging of the veins of the bilateral lower extremities was performed. Compression and augmentation were also utilized. COMPARISON: None. FINDINGS: RIGHT: Common femoral vein: Patent. Greater saphenous vein (superficial): Patent. Deep femoral vein: Patent. Femoral vein: Patent. Popliteal vein: Patent. Calf veins: Patent. LEFT: Common femoral vein: Patent. Greater saphenous vein (superficial): Patent. Deep femoral vein: Patent. Femoral vein: Patent. Popliteal vein: Patent. Calf veins: Patent. Other: None. IMPRESSION: No evidence of deep venous thrombosis. Electronically signed by: Dayo Hopson M.D. 03/09/2019 6:34 PM Dictated: 03/09/191832 Transcribed: 03/09/19183203/08/19 18:15 CT angio head w con Stat CT angio neck with con Stat CT head/brain wo con Stat 03/08/19 20:26 CT head/brain wo con Stat 03/09/19 00:08 MR brain wo con Urgent 03/09/19 10:30 MR brain seizure wo/w con Routine 03/09/19 17:38 US venous doppler LE Routine Hospital Course (1) Stroke-like episode: Cuco Richards is a 18 year old man with no major PMH present to [facility] with stroke-like symptoms Stroke Like Episode. Possibly focal seizure. - Patient with expressive and receptive aphasia, right sided weakness and confusion after practice on 03/08 - Administered TPA, transferred to the ICU, symptoms spontaneously improved - Imaging and lab work have all been negative--no signs on CT/MRI of ischemia - Neurology evaluated considered vaso vagal vs seizure activity - EEG showing some slowing over left hemisphere region--indicating possibility of focal seizure - Will not start anti-epileptics at this time, continue to follow, Neurology follow up in 2-4 weeks - Continue ASA 81, follow up hypercoagulability labs - Echo not showing any Right to left shunt Cannot rule out aortic vegetation though seems very unlikely Echo interpretation - left ventricular systolic function is normal, normal diastolic function, right ventricular systolic pressure is normal, cannot exclude aortic valvular vegetations, cannot exclude patent foramen ovale Total Time Total Time Spent Total Time Spent (In Minutes): Greater than 30 minutes Total Time Includes: Examination of the Patient, Discharge Planning, Medication Reconciliation and Communication With Other Providers Discharge Plan Discharge Items Patient Disposition: Home - Self-Care Reason For Visit: RIGHT SIDED WEAKNESS,APHASIA,S/P TPA Discharge Diagnosis: Stroke-like sx Condition on Discharge: Good Activity: Per Instructions section Exercise/Sports: Gradually increase as tolerated Non-emergency contact: Primary Care Provider and Neurologist Call non-emergency contact if: you have any medication questions and your symptoms worsen Follow-up/Referrals: PCP,NO [Primary Care Provider] - Diet: Regular Addtl Attending Provider Instructions: You came to the hospital with symptoms that were concerning for stroke. You were given a clot busting medicine in the emergency room. After evaluation of imaging, there was no signs on MRI that you had a stroke. We did a EEG, that looks at the electrical activity of the brain. The EEG was unremarkable, but showed some signs that your symptoms could be secondary to a seizure. A seizure is a abnormal electrical activity of the brain that causes physical symptoms. A lot of times, people get convulsions with seizures. Sometimes people have sensory issues like you were experiencing. We would like you to follow-up with the neurologist in 2 to 4 weeks regarding your symptoms. The neurologist did not think that is necessary to start antiseizure medications at this time, as you have only had one incident and we are not sure if it was a seizure. If the symptoms ever occur again, please alert family and friends and go to the emergency room immediately. We recommend the following #1 continue take aspirin 81 mg daily. Continue to take this medication until evaluated by neurologist and after the hypercoagulable test come back. Hypercoagulable testing were pending at discharge. These tests determine whether or not you are at risk for clots in the future. #2 follow-up with your primary care doctor about your hospitalization #3 we recommend taking some time off and resting. We will give you a doctor's note until Tuesday. Pending Studies at Discharge: Yes Studies:: Hypercoagulable panel Stand-Alone Forms: Work/School Release (ED), [facility] Medications and DC Order Prescriptions: New aspirin [Ecotrin Low Strength] 81 mg Tablet,Delayed Release (Dr/Ec) 81 mg PO QAM Qty: 30 RF: 0 No Action No Known Home Medications RF: 0 Discharge Orders: Discharge Order (Routine); Ordered 03/10/19 Ordered By: Som Sapp Admission Data Admit Date/Time: 03/08/19 22:30 Attending Provider: Mainor Cagle Admit Provider: Heidy Izaguirre Primary Care Provider: PCP,NO Other Providers: Fazal Garcia ; John Stovall ; John Holcomb Other Interventions: Discharge Summary Assessment (RN) Last Done: 03/10/19 09:29 DC Date/Time DO NOT enter until pt leaves facility: 03/10/19 10:29 Supervising Physician Co-Signing Physician Notes I was present with the resident physician and confirmed lane portion of the history and physical exam. Agree with the impression and plan as noted above. I also discussed the case with neurology farm service consultant. The patient remains asymptomatic. He has had no recurrence of his symptoms since admission. The etiology is still not 100% clear, although a stroke seems less likely in the setting of a completely negative stroke work-up. The patient's symptoms could be consistent with a focal seizure and the EEG did show some background slowing, which rhythm nonspecific, could also be consistent with seizure activity. Being that this is the patient's first event -and is not definitively be a seizure -no medications are recommended. 1) discharge today 2) continue aspirin 81 mg daily until hypercoagulability screen is back; if this is negative I would also discontinue the aspirin as well. 3) there is no indication for statin therapy 4) follow-up with neurology as an outpatient. Resident Activity Tracking Resident Involvement: Resident Care Provided Care Provided: Adult [facility] Medicine
[2019-03-13 03:15] LABS: Anti Cardiolipin Ab IgG <14 GPL (< = 14); Anti Cardiolipin Ab IgM <12 MPL (< = 12); Anti-Cardiolipin Ab IgA <11 APL (< = 11)
[2019-03-17 11:39] LABS: B2 Glycoprotein IgA <9 SAU (<=20); B2 Glycoprotein IgG <9 SGU (<=20); B2 Glycoprotein IgM <9 SMU (<=20); Lupus Antic Hexagonal Phase Positive (Negative); Phosphatidylserine IgG <10 U/mL (<10); Phosphatidylserine IgM <25 U/mL (<25); Protein S Functional(Activity) 86 % (70-150)
== END 2019-03-10 10:29 | disposition home or self-care (01) | DRG 92 ==
LOC: ED 17:44 → 1E 22:30 → SUATTDRO 22:30 → 1E 23:05